=== PATIENT | male | born 1955 | race Caucasian/White ===

== ENCOUNTER 2023-10-11 14:45 | Emergency (ER) | payer MEDICARE, SELFPAY ==
--- NOTE | ~2023-10-11 | XR_ITS ---
EXAMINATION: XR CHEST CLINICAL INFORMATION: Fever COMPARISON: None available. TECHNIQUE: 2 views of the chest were obtained. FINDINGS: No significant abnormality is noted involving the heart, lungs, mediastinum, bony thorax or soft tissues. XR/XR chest 2V IMPRESSION: Unremarkable examination.
[2023-10-11 14:55] VITALS: BP 140/76; PULSE 108; RESP 16; TEMP 37.4; O2SAT 96; BMI 36.1
--- NOTE | 2023-10-11 14:55 | ED_ITS ---
HPI - General Adult General Chief complaint: General Medical Stated complaint: Fever Time Seen by Provider: 10/11/23 15:41 Source: patient Mode of arrival: ambulatory Limitations: no limitations History of Present Illness HPI narrative: 67-year-old male with a history of hypertension presents to the ER with complaints of fever with max temp of 101.4 degrees with chills and body aches since yesterday. Patient took home COVID test and it was negative. Patient tells me that 2 weeks ago he had 1 week of flu-like symptoms which consisted of fever with max temp of 102 degrees, body aches and chills. This resolved with supportive measures. He denies any associated vomiting, diarrhea, chest pain, abdominal pain, shortness of breath, skin rash, neck pain/neck stiffness, headache, urinary symptoms, upper respiratory symptoms. He denies any recent travel or sick contact. He does walk daily but denies any history of tick bites. No animals in the home. Related Data Allergies Allergy/AdvReac Type Severity Reaction Status Date / Time No Known Allergies Allergy Verified 10/11/23 14:53 Review of Systems 2 Review of Systems: Yes all other systems are reviewed and are negative Constitutional: Constitutional: Reports no additional constitutional complaints, Reports body ache(s), Reports chills, Reports fever(s), Denies headache(s) and Denies weakness Eyes: Eyes: Reports no additional eye complaints and Denies change in vision ENT: Reports system reviewed and no additional complaints, except as documented, Denies dizziness, Denies headache(s), Denies nasal congestion, Denies nasal discharge and Denies neck pain Cardiovascular: Cardiovascular: Reports no additional cardiovascular complaints, Denies chest pain, Denies leg edema and Denies dyspnea Respiratory: Respiratory: Reports no additional respiratory complaints, Denies cough and Denies dyspnea Gastrointestinal: Gastrointestinal: Reports no additional gastrointestinal complaints, Denies abdominal pain, Denies diarrhea, Denies nausea and Denies vomiting Genitourinary: Genitourinary: Denies urinary incontinence Musculoskeletal: Musculoskeletal: Reports no additional musculoskeletal complaints, Denies back pain, Denies arthralgias, Denies joint swelling, Denies neck pain, Denies numbness and Denies tingling Integumentary/Breasts: Skin/Breast: Reports system reviewed and no additional complaints, except as docu and Denies rash Neurologic: Reports system reviewed and no additional complaints, except as documented, Denies Abnormal speech present, Denies dizziness, Denies headache(s), Denies numbness, Denies tingling and Denies weakness [facility] Past Medical History Attestation statement: The following information was validated with the patient. Source: old records reviewed and nursing notes reviewed Social History Social History Advance Directives: No Advance Directives Information Provided: No Physical Exam ED Vital Signs: Vital Signs - 24 hr 10/11/23 14:55 10/11/23 16:56 Temperature 99.3 F 98 F Pulse Rate 108 H 96 Respiratory Rate 16 20 Blood Pressure 140/76 H 126/88 Pulse Oximetry 96 97 Oxygen Delivery Method Room Air Room Air BMI result Body Mass Index 36.1 Const General: cooperative, healthy appearing, comfortable and no acute distress Orientation/consciousness: patient oriented x3 Limitations: no limitations HENMT Head: Yes normal to inspection Ears: hearing grossly normal bilaterally and TM's normal bilaterally General nose exam: Normal external nose present Face and sinus: Yes normal facial exam Mouth: Normal oral and palatal mucosa present Throat: Yes posterior oropharynx normal, Yes tonsils normal and Yes uvula midline Eyes General: appearance normal, both eyes and all related structures Pupils: Equal, round and reactive pupils present Neck Neck: Yes normal visual inspection, Yes full ROM, Yes no lymphadenopathy and Yes no meningeal signs Chest Chest palpation & inspection: normal inspection of the chest Resp Effort & Inspection: normal respiratory effort Auscultation: clear to auscultation bilaterally Cardio Rate: regular rate Rhythm: regular rhythm Peripheral pulses: Peripheral pulses 2+ throughout GI Inspection: Yes normal to inspection Palpation (GI): Soft to palpation and nontender Auscultation: normal bowel sounds Back/Spine/Pelvis Thoracic/Lumbar Spine: thoracic and lumbar spine normal to inspection Skin General skin exam: no rashes or lesions noted Neuro General: patient oriented x3, no meningeal signs, no focal motor deficits and normal sensation to monofilament Cranial nerves: Yes Equal, round and reactive pupils present Cognition (Neuro): normal cognition Speech: No Abnormal speech present Gait exam (Neuro): Normal gait present Motor exam (neuro): 5/5 motor strength present throughout Extrem General: Yes normal to inspection, Yes no pedal edema and Yes no calf tenderness Course Course Course Narrative: RME:?67 yo male here for eval of fever, chills, sweats since last night. TMAX 101.4F. took 2 Advil at 1130 today. Had a fever last week, was seen at PCP office, PCP thought it was the flu however did not test him. he tested negative for covid at home. received flu shot this year. denies loss of appetite or unintended weight loss. viral swabs, CXR ordered Full HPI, ROS and PE to be performed by the primary ED provider. Medical Decision Making Medical Decision Making [facility] Narrative: 67-year-old male with a history of hypertension presents to the ER with complaints of fever with max temp of 101.4 degrees with chills and body aches since yesterday. Patient took home COVID test and it was negative. Patient tells me that 2 weeks ago he had 1 week of flu-like symptoms which consisted of fever with max temp of 102 degrees, body aches and chills. This resolved with supportive measures. He denies any associated vomiting, diarrhea, chest pain, abdominal pain, shortness of breath, skin rash, neck pain/neck stiffness, headache, urinary symptoms, upper respiratory symptoms. He denies any recent travel or sick contact. He does walk daily but denies any history of tick bites. No animals in the home. Exam is benign. Patient is afebrile here. Will obtain labs, UA, CXR, viral testing Differential Diagnosis Differential Diagnoses: The differential diagnosis associated with the presentation includes viral syndrome, influenza, PNA, UTI malignancy tick born illness Low suspician for intraabdominal pathology, menigitis/encephalitis Admission/Observation Consideration of admission/observation: Escalation of care including admission/observation considered patient here with flu-like symptoms. Negative workup in the ER, well- appearing, afebrile, nontoxic. Can go home with strict return precautions Lab Data [facility] Lab Attestation statement: I reviewed the patient's lab results. 10/11/23 16:07 10/11/23 16:07 Labs: Lab Results 10/11/23 10/11/23 10/11/23 Range/Units 15:09 16:07 17:31 WBC 8.8 (4.8-10.8) X10*3/uL RBC 4.79 (4.60-5.80) X10*6/uL Hgb 13.3 L (14.0-18.0) g/dl Hct 39.5 L (42.0-52.0) % MCV 82.5 (80.0-98.0) fL MCH 27.8 (27.0-33.0) pg MCHC 33.7 (31.0-36.0) g/dl RDW 13.5 (11.0-16.0) % Plt Count 162 (160-400) X10*3/uL MPV 10.4 (9.4-12.4) fL Immature Gran % (Auto) 0.2 (0.0-0.4) % Neut % (Auto) 79.8 H (45-73) % Lymph % (Auto) 11.7 L (20-40) % [place] % (Auto) 7.3 (2-11) % Eos % (Auto) 0.5 (0-4) % Baso % (Auto) 0.5 (0-2) % Lymph # (Auto) 1.0 L (1.2-4.9) X10*3/uL [place] # (Auto) 0.6 (0.1-1.2) X10*3/uL Eos # (Auto) 0.0 (0.0-0.4) X10*3/uL Baso # (Auto) 0.0 (0.0-0.2) X10*3/uL Abs Immat Gran (auto) 0.02 (0.00-0.03) X10*3/uL Absolute Neuts (auto) 7.1 (2.0-8.3) x10*3/uL Absolute Nucleated RBC 0.000 (0.0-0.012) X10*3/uL Nucleated RBC % (auto) 0.0 (0.0-0.2) /100WBC PT 13.7 H (11.1-13.3) SEC INR 1.1 (0.9-1.1) Sodium 138 (135-145) mmol/L Potassium 4.1 (3.3-5.1) mmol/L Chloride 106 (96-108) mmol/L Carbon Dioxide 25 (22-29) mmol/L Anion Gap 11 L (12-20) BUN 16 (9-16) mg/dL Creatinine 0.83 (0.5-1.4) mg/dL Estim Creat Clear Calc 104.2 Estimated GFR > 60 Random Glucose 104 (60-115) mg/dL Lactic Acid 0.9 (0.5-2.0) mmol/L Calcium 9.1 (8.4-10.2) mg/dL Magnesium 1.8 (1.6-2.6) mg/dL Total Bilirubin 0.7 (0.0-1.0) mg/dL Direct Bilirubin 0.3 (0.0-0.5) mg/dL AST 16 (5-37) U/L ALT 29 (0-40) U/L Alkaline Phosphatase 53 (39-117) U/L C-Reactive Protein 6.96 H (< or = 0.50) mg/dL Total Protein 7.1 (6.5-8.0) g/dL Albumin 3.7 (3.5-5.0) g/dL Urine Color Dark Yellow Urine Appearance Clear Urine pH 6.0 (5.0-9.0) Ur Specific [place] >= 1.030 H (1.005-1.025) Urine Protein Trace (Neg-Trace) mg/dL Urine Glucose (UA) Negative (Negative) mg/dL Urine Ketones Trace (Negative) mg/dL Urine Blood Trace H (Negative) Urine Nitrite Negative (Negative) Ur Leukocyte Esterase Trace H (Negative) Urine RBC 6-10 H (0-2) /HPF Urine WBC 0-5 (0-5) /HPF Ur Squamous Epith Cells 0-2 (0-2) /HPF Urine Bacteria None Seen (None Seen) Hyaline Casts 0-2 (0-2) /LPF Influenza Type A (PCR) NEGATIVE (Negative) Influenza Type B (PCR) NEGATIVE (Negative) RSV RNA Qual (PCR) NEGATIVE (Negative) SARS-CoV-2 RNA (RT-PCR) NEGATIVE (Negative) Independent Interpretation I performed an independent interpretation of an: Plain X-Ray Interpretation: I independently reviewed the x-ray and agree with rad report Radiology Impression Discussion of test interpretation with radiology: I have reviewed the radiologist's reading. Radiologist Impression: [address] [address] XRay Report Signed Patient: Damien Wise MR#: [id number] : 1955 Acct:[id number] Age/Sex: 67 / M ADM Date: 10/11/23 Loc: HO.ED Attending Dr: Ordering Physician: Linda Vora Date of Service: 10/11/23 Procedure(s): XR chest 2V Accession Number(s): [id number] cc: MIRIAM ANDRE [employer]; Linda Vora~ EXAMINATION: XR CHEST CLINICAL INFORMATION: Fever COMPARISON: None available. TECHNIQUE: 2 views of the chest were obtained. FINDINGS: No significant abnormality is noted involving the heart, lungs, mediastinum, bony thorax or soft tissues. XR/XR chest 2V IMPRESSION: Unremarkable examination. Independent Historian Clinical information obtained from an independent historian. History obtained from or confirmed by: Spouse Tests considered The following testing was considered but not selected: no focal abdominal pain to suggest need for CT A/P imaging No headache, neck pain/stiffness or findings concerning for meningitis/encephalitis warranting LP Prescription Management I considered prescription management with: Antibiotic Discharge Plan Discharge Clinical Impression: Acute viral syndrome Patient Disposition: Home, Self-Care Instructions: Viral Syndrome (ED) Additional Instructions: Your urine shows no signs of infection Your testing for flu, COVID, RSV are negative Your chest x-ray shows no signs of pneumonia Your blood work is reassuring We did send testing for tick-borne illnesses as well as blood cultures. We will call you if these are positive with further instructions Continue to alternate Motrin/Tylenol for any pain or fever Increase fluids at home See your primary care doctor for any continued symptoms. Please return here if anything worsens Referrals: Miriam Andre NP [Primary Care Provider] - 1 week
[2023-10-11 15:57] LABS: Influenza A PCR NEGATIVE (Negative); Influenza B PCR NEGATIVE (Negative); Resp Syncy Virus RNA Qual PCR NEGATIVE (Negative); SARS COV2 PCR INHOUSE NEGATIVE (Negative)
[2023-10-11 16:13] LABS: MANUAL DIFF FLAG NO
[2023-10-11 16:17] LABS: Basophils Percent Auto 0.5 % (0-2); Eosinophils Percent Auto 0.5 % (0-4); Hematocrit 39.5 % (42.0-52.0); Hemoglobin 13.3 g/dl (14.0-18.0); Imm Gran Abs Auto 0.02 X10*3/uL (0.00-0.03); Imm Gran Pct Auto 0.2 % (0.0-0.4); Lymphocytes Percent Auto 11.7 % (20-40); Mean Corpuscular HGB Conc 33.7 g/dl (31.0-36.0); Mean Corpuscular Hemoglobin 27.8 pg (27.0-33.0); Mean Corpuscular Volume 82.5 fL (80.0-98.0); Mean Platelet Volume 10.4 fL (9.4-12.4); Monocytes Absolute Auto 0.6 X10*3/uL (0.1-1.2); Monocytes Percent Auto 7.3 % (2-11); Neutrophils Absolute Auto 7.1 x10*3/uL (2.0-8.3); Neutrophils Percent Auto 79.8 % (45-73); Platelet Count 162 X10*3/uL (160-400); Red Blood Count 4.79 X10*6/uL (4.60-5.80); Red Cell Distribution Width 13.5 % (11.0-16.0); White Blood Count 8.8 X10*3/uL (4.8-10.8)
[2023-10-11 16:21] LABS: INTERNATIONAL NORM RATIO 1.1 (0.9-1.1); Prothrombin Time 13.7 SEC (11.1-13.3)
[2023-10-11 16:42] LABS: Lactic Acid 0.9 mmol/L (0.5-2.0)
[2023-10-11 16:47] LABS: Alanine Aminotransferase 29 U/L (0-40); Albumin Level 3.7 g/dL (3.5-5.0); Alkaline Phosphatase 53 U/L (39-117); Anion Gap 11 (12-20); Aspartate Amino Transferase 16 U/L (5-37); Bilirubin Direct 0.3 mg/dL (0.0-0.5); Bilirubin Total 0.7 mg/dL (0.0-1.0); Blood Urea Nitrogen 16 mg/dL (9-16); C Reactive Protein 6.96 mg/dL (< or = 0.50); Calcium 9.1 mg/dL (8.4-10.2); Carbon Dioxide 25 mmol/L (22-29); Chloride 106 mmol/L (96-108); Creatinine Clr Calc Pharmacy 104.2; Estimated Glomerular Filt Rate > 60; Glucose Random 104 mg/dL (60-115); Magnesium 1.8 mg/dL (1.6-2.6); Potassium 4.1 mmol/L (3.3-5.1); Sodium 138 mmol/L (135-145); Total Protein 7.1 g/dL (6.5-8.0)
[2023-10-11 16:56] VITALS: BP 126/88; PULSE 96; RESP 20; TEMP 36.6; O2SAT 97
[2023-10-11 17:39] LABS: Appearance Urine Clear; Color Urine Dark Yellow; Glucose Urine UA Negative (Negative); Leukocyte Esterase Urine Trace (Negative); Nitrite Urine Negative (Negative); Specific Gravity - Urine >= 1.030 (1.005-1.025); UMIC TRIGGER UACC YES; Urine Blood Trace (Negative); Urine Ketones Trace mg/dL (Negative); Urine Protein Trace mg/dL (Neg-Trace)
[2023-10-11 17:44] LABS: Bacteria Urine None Seen (None Seen); Hyaline Casts Urine 0-2 /LPF (0-2); Squamous Epithelial Cell Urine 0-2 /HPF (0-2); WBC Urine 0-5 /HPF (0-5)
[2023-10-13 06:28] LABS: Lyme Abs Screen <0.90 index
[2023-10-19 11:43] LABS: A. Phagocytophilum Ab IgM <1:20 (<1:20); E. Chaffeensis Ab IgG <1:64 (<1:64); E. Chaffeensis Ab IgM <1:20 (<1:20); Interpretation PAST INFECTION
[2023-10-20 10:54] LABS: Babesia IgG <1:64 titer (<1:64); Babesia IgM <1:20 titer (<1:20)
== END 2023-10-11 18:07 | disposition home or self-care (01) ==
PROVIDERS: Nurse Practitioner Family; Physician Assistant Medical; Emergency Provider Emergency Medicine; PCP Nurse Practitioner Family
DX: B34.9 Viral infection, unspecified (principal); R50.9 Fever, unspecified; Z79.899 Other long term (current) drug therapy; Z20.822 Contact with and (suspected) exposure to COVID-19; Z11.52 Encounter for screening for COVID-19
CPT/HCPCS: 0241U; 36415; 71046; 80048; 80076; 81001; 83605; 83735; 85025; 85610; 86140; 86617; 86618; 86666; 86753; 87040; 87077; 87186; 87205; 99283

== ENCOUNTER 2023-10-16 17:23 | Inpatient (IN) | payer MEDICARE, SELFPAY ==
--- NOTE | ~2023-10-16 | CT_ITS ---
EXAMINATION: CT ABDOMEN AND PELVIS WITHOUT CONTRAST CLINICAL INFORMATION: Enterococcal bacteremia COMPARISON: 10/16/2023 TECHNIQUE: Multidetector volumetric imaging was performed from the superior aspect of the liver through the pubic symphysis. Sagittal and coronal reformatted images were obtained on the technologist's workstation. This CT examination was performed using dose optimization techniques as appropriate, variously including the following: *Automated exposure control *Adjustment of mA and/or kV according to patient size (this includes techniques or standardized protocols for targeted exams where dose is matched to indication/reason for exam; i.e. extremities or head) *Use of iterative reconstruction technique DLP: 623 mGy-cm FINDINGS: LUNG BASES: The visualized lung bases are unremarkable. LIVER, GALLBLADDER, AND BILIARY TREE: Liver is heterogeneous, echogenic and enlarged due to hepatic steatosis. There are no intrahepatic masses or ductal dilatation seen gallbladder is distended without stones. PANCREAS: Unremarkable. SPLEEN: Unremarkable. ADRENAL GLANDS: Right adrenal gland is mildly enlarged KIDNEYS AND URETERS: There is lower pole exophytic 3.7 cm cyst stable since previous study. No evidence of hydroureteronephrosis. There is punctate calcification seen in the lower pole of right kidney stable since prior study.. BLADDER: Unremarkable. GASTROINTESTINAL TRACT: There are changes of colonic diverticulosis without diverticulitis or colitis. No evidence of perforation or inflammatory changes. The appendix is not seen. ABDOMINAL WALL: There is fat-containing bilateral small inguinal hernias. LYMPH NODES: Normal. VASCULAR: Unremarkable. PELVIC VISCERA: Unremarkable. OSSEOUS STRUCTURES: Unremarkable. CT/CT abdomen pelvis wo IV con IMPRESSION: 1. Hepatic steatosis and hepatomegaly. 2. Right renal cyst. Punctate calcification in the lower pole of right kidney 3. Diverticulosis without diverticulitis or colitis. Fleischner guidelines were followed.
--- NOTE | ~2023-10-16 | CT_ITS ---
EXAMINATION: CT ABDOMEN AND PELVIS WITHOUT CONTRAST CLINICAL INFORMATION: Enterococcal bacteremia COMPARISON: None available. TECHNIQUE: Multidetector volumetric imaging was performed from the superior aspect of the liver through the pubic symphysis. Sagittal and coronal reformatted images were obtained on the technologist's workstation. This CT examination was performed using dose optimization techniques as appropriate, variously including the following: *Automated exposure control *Adjustment of mA and/or kV according to patient size (this includes techniques or standardized protocols for targeted exams where dose is matched to indication/reason for exam; i.e. extremities or head) *Use of iterative reconstruction technique DLP: 667 mGy-cm FINDINGS: LUNG BASES: The visualized lung bases are unremarkable. LIVER, GALLBLADDER, AND BILIARY TREE: Slightly enlarged fatty liver.. No focal hepatic lesion or biliary ductal dilatation is present. The gallbladder is unremarkable with no evidence of radiopaque gallstones, gallbladder wall thickening, or obvious pericholecystic inflammatory changes. PANCREAS: Unremarkable. SPLEEN: Unremarkable. ADRENAL GLANDS: Unremarkable. KIDNEYS AND URETERS: The kidneys are normal in size, shape, and attenuation. No hydronephrosis, hydroureter ureter tiny 1 mm stone in the lower pole of the right kidney. 3 cm cyst in the lower pole the left kidney. No imaging follow-up recommended. No perinephric stranding. BLADDER: Unremarkable. GASTROINTESTINAL TRACT: Mild diverticulosis of the colon. No evidence of diverticulitis. The small and large bowel are otherwise unremarkable. The appendix is unremarkable. ABDOMINAL WALL: No significant hernia is appreciated. LYMPH NODES: Normal. VASCULAR: Unremarkable. PELVIC VISCERA: Unremarkable. OSSEOUS STRUCTURES: Degenerative changes of the spine. CT/CT abdomen pelvis wo IV con IMPRESSION: Small nonobstructing right renal stone. Slightly enlarged fatty liver. Mild diverticulosis of the colon. Fleischner guidelines were followed.
--- NOTE | ~2023-10-16 | CT_ITS ---
EXAMINATION: CT ABDOMEN AND PELVIS WITH CONTRAST CLINICAL INFORMATION: Persistent bacteremia. COMPARISON: CT abdomen/pelvis 10/18/2023. TECHNIQUE: Multidetector volumetric images were obtained from the superior aspect of the liver through the pubic symphysis following administration 532 mL of Omnipaque 350 intravenous contrast. Sagittal and coronal reformatted images were obtained on the technologist's workstation. Oral contrast: No This CT examination was performed using dose optimization techniques as appropriate, variously including the following: *Automated exposure control *Adjustment of mA and/or kV according to patient size (this includes techniques or standardized protocols for targeted exams where dose is matched to indication/reason for exam; i.e. extremities or head) *Use of iterative reconstruction technique DLP: 532 mGy-cm FINDINGS: LUNG BASES: The visualized lung bases are unremarkable. LIVER, GALLBLADDER, AND BILIARY TREE: The liver is enlarged measuring 19.7 cm craniocaudally and demonstrates low density consistent with hepatic steatosis. Nonspecific focal peripheral high density observation measuring 1.5 cm in liver segment 5 (3:28). Otherwise, liver is normal in morphology. Normal gallbladder. No biliary ductal dilatation. PANCREAS: Unremarkable. SPLEEN: Very small nonaggressive appearing hypodensity in the periphery of the lateral spleen (3:23), not well seen on prior noncontrast examinations. ADRENAL GLANDS: Stable 1.3 cm right adrenal nodule measuring less than 10 Hounsfield units on the prior noncontrast examination, consistent with an adenoma, for which no imaging follow-up is recommended. KIDNEYS AND URETERS: Bosniak I cortical cyst measuring 3.2 cm along the medial surface of the lower left kidney and a few additional too small to characterize bilateral cortical hypodensities, that statistically are also likely to represent simple cysts for which no imaging follow-up is recommended. Symmetric nephrograms. No nephrolithiasis. No hydronephrosis. No perinephric fat stranding. BLADDER: Minimal urinary bladder wall trabeculation and thickening. No significant perivesical fat stranding. GASTROINTESTINAL TRACT: Trace hiatal hernia. The stomach and the small bowel are nondilated. Appendix not well seen, however there are no regional inflammatory changes to suspect acute appendicitis. Mild colonic diverticulosis without significant pericolonic inflammatory changes to suspect acute diverticulitis. No evidence of bowel obstruction. ABDOMINAL WALL: Small fat-containing right greater than left inguinal hernias. Minimal subcutaneous fat stranding in the anterior abdominal wall (3:60), possibly related with injection sites. LYMPH NODES: No lymphadenopathy. VASCULAR: Normal caliber abdominal aorta. Main portal vein is patent. PELVIC VISCERA: Mild prostatomegaly. OSSEOUS STRUCTURES: Degenerative changes of the spine. No acute or aggressive appearing osseous findings. CT/CT abdomen pelvis w IV con IMPRESSION: 1. Hepatomegaly and hepatic steatosis. 2. Nonspecific 1.5 cm high density observation in liver segment 5, possibly representing a transient perfusional abnormality or hemangioma. Recommend further evaluation with outpatient abdominal MRI versus short-term follow-up CT abdomen to ensure stability/resolution. 3. Mild urinary bladder wall trabeculation and thickening, possibly related with chronic outlet obstruction in the setting of prostatomegaly. Further evaluation with urinalysis could be obtained as clinically warranted if cystitis/urinary tract infection is suspected. 4. Mild colonic diverticulosis but no evidence of acute diverticulitis. 5. Very small nonaggressive appearing hypodensity in the lateral aspect of the spleen, uncertain if it is related with volume averaging/artifact versus a true observation, for which differential considerations include cyst, hemangioma, transient perfusional abnormality or less likely very tiny infarction. Attention on follow-up in future examinations recommended.
--- NOTE | 2023-10-16 17:35 | ED.RECABL ---
HPI - Recheck/Abnormal Lab/Rx General Chief Complaint: Recheck/Abnormal Lab/Rx Stated Complaint: abnormal blood culture- was told to come in Time Seen by Provider: 10/16/23 21:16 History of Present Illness HPI narrative: Patient is 61 cc old with history of bladder cancer status post resection otherwise healthy coming here for 4 weeks of intermittent fever with chills T-max of 102 degrees was seen here on 10/11 workup was with normal lactic acid level had blood culture done which showed Enterococcus faecalis in both bottles patient denied any abdominal pain no open wound no urinary symptoms patient's urine was negative patient had colonoscopy about 5 years ago was negative no family history of colon cancer no weight loss no cough no urinary symptoms no open wound no skin lesion has normal appetite no weight loss no neck pain Related Data Home Medications Medication Instructions Recorded Confirmed acetaminophen 325 mg tablet 650 mg PO Q6H PRN Fever Or Pain 10/16/23 10/16/23 amlodipine 10 mg tablet 10 mg PO DAILY 10/16/23 10/16/23 ibuprofen 200 mg tablet (Advil) 400 mg PO Q6H PRN Fever Or Pain 10/16/23 10/16/23 valsartan 80 mg tablet 80 mg PO DAILY 10/16/23 10/16/23 Allergies Allergy/AdvReac Type Severity Reaction Status Date / Time No Known Allergies Allergy Verified 10/11/23 14:53 Review of Systems Review of Systems: Yes all other systems are reviewed and are negative [facility], [facility] Past Medical History Medical History (Updated 10/17/23 @ 02:39 by Ananth Katz MD) Essential hypertension Bladder cancer Social History Social History Patient Tobacco Use Status: Never used Tobacco Advance Directives: No Advance Directives Information Provided: No Physical Exam Vital Signs: Vital Signs: Last Vital Signs Temp 100.3 F 10/16/23 22:02 Pulse 96 10/16/23 22:02 Resp 20 10/16/23 22:02 BP 161/95 H 10/16/23 22:02 Pulse Ox 95 10/16/23 22:02 O2 Del Method Room Air 10/16/23 22:02 BMI result Body Mass Index 35.6 Appearance: Alert. Oriented X3. No acute distress. Eyes: No pallor or icterus ENT: Pharynx normal. Oral Mucosa moist Neck: Normal inspection. Neck supple. CVS: Normal heart rate and rhythm. Pulses normal. Respiratory: No respiratory distress. Equal air entry bilateral, no wheezing/rales/rhonchi Abdomen: Soft and nontender. Bowel sounds are present, no mass palpable, no CVA tenderness Skin: Skin warm and dry. Normal skin color. Normal skin turgor. Extremities: No lower extremity edema. No calf tenderness Neuro: Oriented X 3. Course Course Course Narrative: RME:?67 yo male w/ hx of HTN here after receiving a call with positive blood cultures. He was seen in our facility 5 days ago for fever and discharged with unremarkable workup. He continues to have intermittent fevers/chills/night sweats, headache, and nausea daily. 2/2 Blood cultures positive for Enterococcus faecalis repeat labs/culture, UA ordered Full HPI, ROS and PE to be performed by the primary ED provider. Medications Administered Generic Name Dose Route Start Last Admin Trade Name Freq PRN Reason Stop Dose Admin Acetaminophen 650 mg 10/16/23 23:54 10/17/23 01:32 Acetaminophen 325 Mg Tablet PO 650 mg Q6H PRN Administration Fever Sodium Chloride 1,000 mls @ 100 mls/hr 10/16/23 23:45 10/17/23 01:27 Ns IVCONT 100 mls/hr .Q10H BALDEMAR Administration Sodium Chloride 3 ml 10/17/23 00:00 10/17/23 01:28 0.9 % Sodium Chloride Flush 3 Ml Syringe IVFLUSH Not Given QSHIFT BALDEMAR Discontinued Medications Generic Name Dose Route Start Last Admin Trade Name Freq PRN Reason Stop Dose Admin Sodium Chloride 1,000 mls @ 999 mls/hr 10/16/23 21:21 10/16/23 23:00 Ns IV 10/16/23 22:21 Infused .Q1H1M ONE Infusion Vancomycin HCl 2,000 mg in 500 mls @ 250 mls/hr 10/16/23 21:21 10/17/23 01:32 Vancomycin/Ns IV 10/16/23 23:20 Infused ONCE ONE Infusion Medical Decision Making Medical Decision Making [facility] Narrative: Patient with enterococcal bacteremia etiology not very clear CT of the abdomen done to rule out any GI pathology which was negative a small nonobstructive stone in the right kidney will admit patient for IV antibiotic and repeat blood cultures patient has normal lactic acid level and WBC count Differential Diagnosis Differential Diagnoses: The differential diagnosis associated with the presentation includes Admission/Observation Consideration of admission/observation: Escalation of care including admission/observation considered Consult Healthcare Provider Management of the patient was discussed with: Hospitalist Lab Data MDM Lab Attestation statement: I reviewed the patient's lab results. 10/16/23 17:59 10/16/23 17:59 Labs: Lab Results 10/16/23 Range/Units 17:59 WBC 7.0 (4.8-10.8) X10*3/uL RBC 4.61 (4.60-5.80) X10*6/uL Hgb 12.6 L (14.0-18.0) g/dl Hct 37.7 L (42.0-52.0) % MCV 81.8 (80.0-98.0) fL MCH 27.3 (27.0-33.0) pg MCHC 33.4 (31.0-36.0) g/dl RDW 13.7 (11.0-16.0) % Plt Count 133 L (160-400) X10*3/uL MPV 9.9 (9.4-12.4) fL Immature Gran % (Auto) 0.3 (0.0-0.4) % Neut % (Auto) 72.4 (45-73) % Lymph % (Auto) 16.5 L (20-40) % [place] % (Auto) 9.0 (2-11) % Eos % (Auto) 1.4 (0-4) % Baso % (Auto) 0.4 (0-2) % Lymph # (Auto) 1.2 (1.2-4.9) X10*3/uL [place] # (Auto) 0.6 (0.1-1.2) X10*3/uL Eos # (Auto) 0.1 (0.0-0.4) X10*3/uL Baso # (Auto) 0.0 (0.0-0.2) X10*3/uL Abs Immat Gran (auto) 0.02 (0.00-0.03) X10*3/uL Absolute Neuts (auto) 5.1 (2.0-8.3) x10*3/uL Absolute Nucleated RBC 0.000 (0.0-0.012) X10*3/uL Nucleated RBC % (auto) 0.0 (0.0-0.2) /100WBC Sodium 138 (135-145) mmol/L Potassium 3.8 (3.3-5.1) mmol/L Chloride 108 (96-108) mmol/L Carbon Dioxide 24 (22-29) mmol/L Anion Gap 10 L (12-20) BUN 16 (9-16) mg/dL Creatinine 0.89 (0.5-1.4) mg/dL Estim Creat Clear Calc 96.4 Estimated GFR > 60 Random Glucose 137 H (60-115) mg/dL Lactic Acid 1.0 (0.5-2.0) mmol/L Calcium 8.9 (8.4-10.2) mg/dL Magnesium 1.9 (1.6-2.6) mg/dL Total Bilirubin 0.7 (0.0-1.0) mg/dL AST 20 (5-37) U/L ALT 44 H (0-40) U/L Alkaline Phosphatase 62 (39-117) U/L Total Protein 7.1 (6.5-8.0) g/dL Albumin 3.6 (3.5-5.0) g/dL Lipase 35 (8-78) U/L Independent Interpretation I performed an independent interpretation of an: CT Scan Radiology Impression Discussion of test interpretation with radiology: I have reviewed the radiologist's reading. Discharge Plan Discharge Clinical Impression: Bacteremia Patient Disposition: Admitted As Inpatient
[2023-10-16 17:39] VITALS: BP 133/72; PULSE 98; RESP 18; TEMP 36.7; O2SAT 95; BMI 35.6
[2023-10-16 18:08] LABS: MANUAL DIFF FLAG NO
[2023-10-16 18:09] LABS: Basophils Percent Auto 0.4 % (0-2); Eosinophils Absolute Auto 0.1 X10*3/uL (0.0-0.4); Eosinophils Percent Auto 1.4 % (0-4); Hematocrit 37.7 % (42.0-52.0); Hemoglobin 12.6 g/dl (14.0-18.0); Imm Gran Abs Auto 0.02 X10*3/uL (0.00-0.03); Imm Gran Pct Auto 0.3 % (0.0-0.4); Lymphocytes Absolute Auto 1.2 X10*3/uL (1.2-4.9); Lymphocytes Percent Auto 16.5 % (20-40); Mean Corpuscular HGB Conc 33.4 g/dl (31.0-36.0); Mean Corpuscular Hemoglobin 27.3 pg (27.0-33.0); Mean Corpuscular Volume 81.8 fL (80.0-98.0); Mean Platelet Volume 9.9 fL (9.4-12.4); Monocytes Absolute Auto 0.6 X10*3/uL (0.1-1.2); Neutrophils Absolute Auto 5.1 x10*3/uL (2.0-8.3); Neutrophils Percent Auto 72.4 % (45-73); Platelet Count 133 X10*3/uL (160-400); Red Blood Count 4.61 X10*6/uL (4.60-5.80); Red Cell Distribution Width 13.7 % (11.0-16.0)
[2023-10-16 18:24] LABS: Alanine Aminotransferase 44 U/L (0-40); Albumin Level 3.6 g/dL (3.5-5.0); Alkaline Phosphatase 62 U/L (39-117); Anion Gap 10 (12-20); Aspartate Amino Transferase 20 U/L (5-37); Bilirubin Total 0.7 mg/dL (0.0-1.0); Blood Urea Nitrogen 16 mg/dL (9-16); Calcium 8.9 mg/dL (8.4-10.2); Carbon Dioxide 24 mmol/L (22-29); Chloride 108 mmol/L (96-108); Creatinine Clr Calc Pharmacy 96.4; Estimated Glomerular Filt Rate > 60; Glucose Random 137 mg/dL (60-115); Lipase 35 U/L (8-78); Magnesium 1.9 mg/dL (1.6-2.6); Potassium 3.8 mmol/L (3.3-5.1); Sodium 138 mmol/L (135-145); Total Protein 7.1 g/dL (6.5-8.0)
[2023-10-16] MEDS: 0.9 % Sodium Chloride 1,000 ML 999 ML IV (21:54)
[2023-10-16] MEDS: vancomycin/NS 2,000 MG/500 ML PLAST..BAG 250 MG IV (21:58)
[2023-10-16 22:02] VITALS: BP 161/95; PULSE 96; RESP 20; TEMP 37.9; O2SAT 95
--- NOTE | 2023-10-16 22:31 | PHA.MEDREC ---
Pharmacy Consult ? Medication Reconciliation Pharmacy has completed the medication reconciliation. Patient reported medicaitons. Lachelle Bynum, JudithD
[2023-10-17] VITALS (7 sets, daily range): BP systolic 117–138; BP diastolic 68–79; PULSE 78–88; RESP 16–20; TEMP 36.3–37; O2SAT 95–97; BMI 35.6
[2023-10-17] MEDS: 0.9 % Sodium Chloride 1,000 ML 100 ML IVCONT ×3 (01:27→23:28)
--- NOTE | 2023-10-17 01:27 | PM.IMHP ---
History of Present Illness Date of Service: 10/16/23 Attending physician on admission: Eloisa Jurado Chief Complaint: Fever and chills Damien Wise is a 67 years old man with past medical history significant for bladder cancer on remission presents to the emergency department complaining of over the last several weeks. He also reports associated headache, myalgias and generalized malaise. He does have nausea in the mornings but denied vomiting, abdominal pain or diarrhea. He did not report any rash, cough, shortness on breath or chest pain. He also denies any acute urinary symptoms. He denied illicit drug use, alcohol abuse or tobacco smoking. About 5 days ago, he was evaluated in the emergency department and underwent blood cultures that are positive for Enterococcus faecalis in both bottles and was advised to come to the hospital for further treatment and evaluation. He has no history of bacteremia. He denies history of colon cancer. His last colonoscopy was about 3-5 years ago and was told it was normal (he was adviced to have another in 10 years). In the ED he was found to have temperature 100.3 degrees. There is no tachycardia. Blood pressure is 161/95. Viral testing is negative for COVID-19, influenza and RSV (October 11). There is no leukocytosis. There are no electrolyte imbalances. Renal function is normal. There is no lactic acidosis and LFTs are normal. CRP is elevated. CXR is negative. Urinalysis showed Abdominal pelvis CT scan showed small nonobstructing right renal stone, slightly enlarged fatty liver and mild diverticulosis. ED tx: Vancomycin 2 g IV, NS 1 L bolus. Review of Systems Review of Systems: All 12 systems were reviewed and normal except as noted in HPI. [facility] Medical History (Updated 10/17/23 @ 01:58 by Eloisa Jurado MD) Essential hypertension Bladder cancer Social History Patient Tobacco Use Status: Never used Tobacco Meds Allergies Allergy/AdvReac Type Severity Reaction Status Date / Time No Known Allergies Allergy Verified 10/11/23 14:53 Active Medications: Current Medications Acetaminophen (Acetaminophen 325 Mg Tablet) 650 mg PO Q6H PRN PRN Reason: Fever Amlodipine Besylate (Amlodipine Besylate 10 Mg Tablet) 10 mg PO DAILY [facility]; Protocol Heparin Sodium (Porcine) (Heparin Sodium,Porcine 5,000 Unit/Ml Vial) 5,000 unit SUBCUT Q8H [facility] Sodium Chloride (Ns) 1,000 mls @ 100 mls/hr IVCONT .Q10H [facility] Pharmacy Consult (Consult Rx Vancomycin Dosing) 1 each MISCELLANE DAILY PRN PRN Reason: Consult order Sodium Chloride (0.9 % Sodium Chloride Flush 3 Ml Syringe) 3 ml IVFLUSH QSHIFT [facility] Valsartan (Valsartan 80 Mg Tablet) 80 mg PO DAILY [facility]; Protocol Home Medications Medication Instructions Recorded Confirmed Last Taken Type acetaminophen 325 mg tablet 650 mg PO Q6H PRN Fever Or Pain 10/16/23 10/16/23 Unknown History amlodipine 10 mg tablet 10 mg PO DAILY 10/16/23 10/16/23 10/16/23 History ibuprofen 200 mg tablet (Advil) 400 mg PO Q6H PRN Fever Or Pain 10/16/23 10/16/23 Unknown History valsartan 80 mg tablet 80 mg PO DAILY 10/16/23 10/16/23 10/16/23 History Physical Exam Vital Signs and Narrative: Vital Signs: Last Vital Signs Temp 100.3 F 10/16/23 22:02 Pulse 96 10/16/23 22:02 Resp 20 10/16/23 22:02 BP 161/95 H 10/16/23 22:02 Pulse Ox 95 10/16/23 22:02 O2 Del Method Room Air 10/16/23 22:02 BMI result Body Mass Index 35.6 Constitutional - Awake and Alert, No apparent distress. Looks fatigued. HEENT - Atraumatic. Normocephalic. Pupils equally round. No scleral icterus. Heart - S1S2, RRR. Lungs - Normal lung expansion, Normal respiratory effort, No respiratory distress, CTA bilaterally Abdomen - NT / ND; +BS; No rebound or guarding Extremities - no calf tenderness bilaterally, no swelling Musculoskeletal - Normal inspection, normal ROM Skin - Warm/Dry. No rashes. Neurological - Alert & oriented x3. No focal weakness grossly noted. Normal speech. Normal behavior. Psychological - Appropriate affect Results Labs 10/16/23 17:59 10/16/23 17:59 Labs: Laboratory Results - last 24 hr 10/16/23 17:59 MCV 81.8 MCH 27.3 MCHC 33.4 RDW 13.7 Plt Count 133 L MPV 9.9 Immature Gran % (Auto) 0.3 Neut % (Auto) 72.4 Lymph % (Auto) 16.5 L [place] % (Auto) 9.0 Eos % (Auto) 1.4 Baso % (Auto) 0.4 Lymph # (Auto) 1.2 [place] # (Auto) 0.6 Eos # (Auto) 0.1 Baso # (Auto) 0.0 Abs Immat Gran (auto) 0.02 Absolute Neuts (auto) 5.1 Absolute Nucleated RBC 0.000 Nucleated RBC % (auto) 0.0 Anion Gap 10 L Estim Creat Clear Calc 96.4 Estimated GFR > 60 Random Glucose 137 H Lactic Acid 1.0 Calcium 8.9 Magnesium 1.9 Total Bilirubin 0.7 AST 20 ALT 44 H Alkaline Phosphatase 62 Total Protein 7.1 Albumin 3.6 Lipase 35 Imaging Radiologist's Impressions: Impressions Abdomen/Pelvis CT 10/16/23 21:49 IMPRESSION: Small nonobstructing right renal stone. Slightly enlarged fatty liver. Mild diverticulosis of the colon. Fleischner guidelines were followed. Assessment and Plan (1) Essential hypertension: Status: Acute (2) Bacteremia: Status: Acute (3) Enterococcus faecalis infection: Status: Acute Plan Damien Wise is a 67 years old man with past medical history significant for bladder cancer admitted with: Bacteremia secondary to Enterococcus faecalis (susceptible to ampicillin and vancomycin), unclear source of infection. Admit to hospitalist service. Start treatment with ampicillin 1 g every 4 hours. Check urinalysis. Blood cultures were repeated -will follow results. Check TTE to assess for endocarditis -despite there are no obvious signs or symptoms of endocarditis this should be done as the patient has been having fever for several weeks. ID consult. Hypertension. Continue valsartan and amlodipine. DVT prophylaxis: Heparin subcut Code status: Full Patient will need hospitalization for at least 2 midnights for bacteremia secondary to Enterococcus faecalis treatment with IV antibiotic therapy and close monitoring of vital signs. Quality Stroke Does the patient have a stroke diagnosis?: No VTE Prior VTE?: No VTE Risk Level:: Medical - moderate - high VTE Device Contraindication: Treatment Not Indicated VTE Drug Contraindication: N/A - Med Ordered
[2023-10-17] MEDS: Acetaminophen 325 MG TABLET 650 MG PO ×3 (01:32→21:15)
[2023-10-17 01:56] LABS: Appearance Urine Clear; Color Urine Yellow; Glucose Urine UA Negative (Negative); Leukocyte Esterase Urine Negative (Negative); Nitrite Urine Negative (Negative); PH 6.5 (5.0-9.0); UMIC TRIGGER UACC YES; Urine Blood Small (1+) (Negative); Urine Ketones Negative (Negative); Urine Protein Negative (Neg-Trace)
[2023-10-17 01:58] LABS: Bacteria Urine None Seen (None Seen); Hyaline Casts Urine 0-2 /LPF (0-2); Squamous Epithelial Cell Urine 0-2 /HPF (0-2); WBC Urine 0-5 /HPF (0-5)
[2023-10-17 06:07] LABS: MANUAL DIFF FLAG NO
[2023-10-17 06:12] LABS: Basophils Percent Auto 0.4 % (0-2); Eosinophils Absolute Auto 0.1 X10*3/uL (0.0-0.4); Eosinophils Percent Auto 0.7 % (0-4); Hematocrit 35.1 % (42.0-52.0); Hemoglobin 11.6 g/dl (14.0-18.0); Imm Gran Abs Auto 0.03 X10*3/uL (0.00-0.03); Imm Gran Pct Auto 0.4 % (0.0-0.4); Lymphocytes Absolute Auto 1.3 X10*3/uL (1.2-4.9); Lymphocytes Percent Auto 18.8 % (20-40); Mean Corpuscular Hemoglobin 27.2 pg (27.0-33.0); Mean Corpuscular Volume 82.4 fL (80.0-98.0); Mean Platelet Volume 10.4 fL (9.4-12.4); Monocytes Absolute Auto 0.8 X10*3/uL (0.1-1.2); Monocytes Percent Auto 11.9 % (2-11); Neutrophils Absolute Auto 4.6 x10*3/uL (2.0-8.3); Neutrophils Percent Auto 67.8 % (45-73); Platelet Count 128 X10*3/uL (160-400); Red Blood Count 4.26 X10*6/uL (4.60-5.80); Red Cell Distribution Width 13.8 % (11.0-16.0); White Blood Count 6.7 X10*3/uL (4.8-10.8)
[2023-10-17 06:26] LABS: Anion Gap 11 (12-20); Blood Urea Nitrogen 12 mg/dL (9-16); Calcium 8.4 mg/dL (8.4-10.2); Carbon Dioxide 24 mmol/L (22-29); Chloride 109 mmol/L (96-108); Creatinine Clr Calc Pharmacy 104.6; Estimated Glomerular Filt Rate > 60; Glucose Random 103 mg/dL (60-115); Potassium 3.8 mmol/L (3.3-5.1); Sodium 140 mmol/L (135-145)
--- NOTE | 2023-10-17 07:00 | CA_ITS ---
Transthoracic Echocardiogram Amended Patient (Last, First, Middle): Damien Wise A Gender: Male Date of : 1955 Age: 67 Procedure Date: 10/17/2023 Procedure Type: Transthoracic Echocardiogram Location: ER Height: 172.72 cm Weight: 106.14 kg BSA: 2.18 m2 Heart Rate: 80 bpm BP: 132 / 72 mmHg Clinical Medical Transcriptionist: MANA Referring MD: Eloisa Jurado MD Construction Teacher: Renny Arnold MD Symptoms: Bacteremia with Enterococcus faecalis Study Quality: Adequate ECG Rhythm: Sinus Conclusions: - 1. No obvious large vegetations seen although can not be entirely ruled out 2. Normal LV systolic function with LVEF of 60-65% 3. No obvious abnormality of cardiac valvular Dopplers 4. Normal RV systolic pressure 5. No gross pericardial effusion Findings Left Ventricle Normal left ventricular size, thickness, and systolic function. The visually estimated ejection fraction is between 60-65%. Spectral Doppler is indicative of a normal filling pattern. Peak GLS is -19%, within normal limits. Right Ventricle Normal right ventricular cavity size and systolic function. Atria The left atrium is likely dilated. There is no evidence of interatrial shunt. The right atrium is normal in size. Aortic Valve The aortic valve was not well visualized. There is mild calcification of the aortic valve. There is no aortic valve stenosis. There is no aortic valve regurgitation. Mitral Valve There is mild anterior and posterior mitral leaflet thickening. There is no mitral valve regurgitation. There is no mitral valve stenosis. There is no mass noted on the mitral valve. Pulmonic Valve The pulmonic valve was not well visualized. Tricuspid Valve The tricuspid valve was not well visualized. There is no tricuspid valve regurgitation. The right ventricular systolic pressure is normal. Normal right atrial pressure. There is no evidence of pulmonary hypertension. Great Vessels The pulmonary artery was not well visualized. There is no dilatation of the ascending aorta measuring 3.30 cm. Venous The inferior vena cava is normal in size and collapses greater than 50% with inspiration. Pericardium/Pleural There is no evidence of pericardial effusion. Prior Study Comparison No prior study available for comparison. Recommendations, Care & Conclusions Consider a BRIANDA if clinically appropriate. Measurements 2D Linear Measurements IVSd: 1.06 0.6-0.9/0.6-1.0 cm LVIDd: 4.36 3.9-5.3/4.2-5.9 cm LVIDd Index: 2.00 2.4-3.2/2.2-3.1 cm/m2 LVIDs: 2.73 2.0-3.6 cm LVPWd: 0.94 0.7-1.1 cm LA Diam: 4.00 2.7-3.8/3.0-4.0 cm LAIDs Index: 1.83 1.5-2.3 cm/m2 LV Mass: 181.10 67-162/88-224 g LV Mass Index: 83.07 43-95/49-115 g/m2 LVOT Diam: 2.20 3.0+(-)1.3 cm 2D Volumes LA Vol: 20.90 2D Systolic Function EF 4C: 56.40 >55% EF 2C: 67.30 >55% EF BiP: 62.60 >55% Mitral Valve MV Pk E: 1.06 MV PK A: 0.85 MV Decel Time: 224.00 E/A: 1.30 E'Lateral: 9.46 E'Medial: 11.30 E/E' Med: 9.40 E/E' Lat: 11.20 PHT: 66.00 MVA PHT: 3.33 Decel [place]: 4.70 Aortic Valve AoV Pk Aidan: 1.36 AoV Mn Aidan: 0.91 AoV VTI: 0.22 AoV Pk Grad: 7.00 Aov Mn Grad: 4.00 RANDALL Cont.VTI: 4.04 LVOT LVOT Pk Aidan: 1.33 LVOT Mn Aidan: 0.85 LVOT VTI: 0.24 LVOT Pk Grad: 7.00 LVOT Mn Grad: 3.00 LVOT Diam: 2.20 LVOT Area: 3.80 Diastolic Function MV Pk E: 1.06 MV Pk A: 0.85 E/A: 1.30 E'Medial: 11.30 E/E' Med: 9.40 E' Laterial: 9.46 E/E' Lat: 11.20 Right Ventricle TAPSE (mm): 23.90 TVS' Aidan: 14.00 Tricuspid Valve TR Pk Aidan: 2.14 TR Pk Grad: 18.00 RA Press: 3.00 RVSP: 21.00 Great Vessels Aorta Sinus of Valsalva: 3.50 2.0-3.5 cm Ao Asc: 3.30 2.1-3.4 cm Pulmonary Valve PV Pk Aidan: 1.13 Peak PV Grad: 5.00 Updated in Other Vendor System with Status of Final Renny Arnold MD electronically signed on 10/18/2023 10:50:46 AM with status of Final
[2023-10-17] MEDS: 0.9 % Sodium Chloride Flush 3 ML SYRINGE IVFLUSH (08:00)
[2023-10-17] MEDS: amLODIPine Besylate 10 MG TABLET PO (08:01)
[2023-10-17] MEDS: Heparin Sodium,Porcine 5,000 UNIT/ML VIAL 5000 UNIT SUBCUT ×2 (08:01→16:59)
[2023-10-17] MEDS: Valsartan 80 MG TABLET PO (08:01)
[2023-10-17] MEDS: Ampicillin Sodium 2 GM in 0.9 % Sodium Chloride 100 ML IV ×4 (08:01→21:15)
--- NOTE | 2023-10-17 08:14 | PC.NURSE ---
patient awake and alert. skin pwd, resp even and non labored, speaking in full, clear sentences. VSS, NSR via tele, IV fluids and IV abt infusing as ordered. reports lower abd cramping /. patient up and ambulatory independently to the bathroom, patient reports having a bowel movement, cramping persists after. pt requesting tylenol. awaiting admission
--- NOTE | 2023-10-17 12:09 | PC.NURSE ---
pt ambulated independently to the bathroom, medicated per MAR, denies any pain/nausea at this time, resting comfortably, pending bed assignment. no new orders at this time.
[2023-10-17] MEDS: cefTRIAXone sodium 2 GM in 0.9 % Sodium Chloride 50 ML IV (14:53)
--- NOTE | 2023-10-17 14:55 | W.PM.IDCN ---
History of Present Illness Data of Consult Service Date: 10/17/23 Requesting physician: Ron Martini Primary Care Provider: Ayden Sheffield MD HPI Reason for consult: bacteremia,enterococcus faecalis He presents ER with fever to 101.4 and chills and myalgias,felt like flu. He was called to come back in due to blood cultures enterococcus faecalis 2 10/11 and 2 10/16. He has no procedures or dental work. He had colonoscopy within last five years he thinks He has had no diverticulitis or urinary problems. He sees Dr [facility] bladder cancer 12 years ago and no further problems. He has no abdominal pain or hemauria or dysuria. 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 Meds Allergies Allergy/AdvReac Type Severity Reaction Status Date / Time No Known Allergies Allergy Verified 10/11/23 14:53 Active Medications: Current Medications Acetaminophen (Acetaminophen 325 Mg Tablet) 650 mg PO Q6H PRN PRN Reason: Fever Last Admin: 10/17/23 08:45 Dose: 650 mg Amlodipine Besylate (Amlodipine Besylate 10 Mg Tablet) 10 mg PO DAILY [facility]; Protocol Last Admin: 10/17/23 08:01 Dose: 10 mg Heparin Sodium (Porcine) (Heparin Sodium,Porcine 5,000 Unit/Ml Vial) 5,000 unit SUBCUT Q8H [facility] Last Admin: 10/17/23 08:01 Dose: 5,000 unit Ampicillin Sodium 2 gm/ Sodium (Chloride) 100 mls @ 200 mls/hr IV Q4H [facility] Last Infusion: 10/17/23 13:31 Dose: Infused Sodium Chloride (Ns) 1,000 mls @ 100 mls/hr IVCONT .Q10H [facility] Last Admin: 10/17/23 12:06 Dose: 100 mls/hr Ceftriaxone Sodium 2 gm/ (Sodium Chloride) 50 mls @ 100 mls/hr IV Q24H [facility] Last Admin: 10/17/23 14:53 Dose: 100 mls/hr Sodium Chloride (0.9 % Sodium Chloride Flush 3 Ml Syringe) 3 ml IVFLUSH QSHIFT [facility] Last Admin: 10/17/23 08:00 Dose: 3 ml Valsartan (Valsartan 80 Mg Tablet) 80 mg PO DAILY [facility]; Protocol Last Admin: 10/17/23 08:01 Dose: 80 mg Home Medications Medication Instructions Recorded Confirmed Last Taken Type acetaminophen 325 mg tablet 650 mg PO Q6H PRN Fever Or Pain 10/16/23 10/16/23 Unknown History amlodipine 10 mg tablet 10 mg PO DAILY 10/16/23 10/16/23 10/16/23 History ibuprofen 200 mg tablet (Advil) 400 mg PO Q6H PRN Fever Or Pain 10/16/23 10/16/23 Unknown History valsartan 80 mg tablet 80 mg PO DAILY 10/16/23 10/16/23 10/16/23 History Physical Exam Vital Signs: Vital Signs: Last Vital Signs Temp 98.3 F 10/17/23 14:53 Pulse 78 10/17/23 14:53 Resp 16 10/17/23 14:53 BP 132/72 10/17/23 14:53 Pulse Ox 95 10/17/23 14:53 O2 Del Method Room Air 10/17/23 14:53 BMI result Body Mass Index 35.6 Cardio: Other: 26 BRISA Results Labs 10/17/23 05:30 10/17/23 05:30 Labs: Short CBC 10/16/23 10/17/23 Range/Units 17:59 05:30 WBC 7.0 6.7 (4.8-10.8) X10*3/uL Hgb 12.6 L 11.6 L (14.0-18.0) g/dl Hct 37.7 L 35.1 L (42.0-52.0) % Plt Count 133 L 128 L (160-400) X10*3/uL BMP 10/16/23 10/17/23 17:59 05:30 Sodium 138 140 Potassium 3.8 3.8 Chloride 108 109 H Carbon Dioxide 24 24 BUN 16 12 Creatinine 0.89 0.82 Calcium 8.9 8.4 Liver Function 10/16/23 Range/Units 17:59 Total Bilirubin 0.7 (0.0-1.0) mg/dL AST 20 (5-37) U/L ALT 44 H (0-40) U/L Alkaline Phosphatase 62 (39-117) U/L Albumin 3.6 (3.5-5.0) g/dL Urine 10/17/23 Range/Units 01:48 Urine Color Yellow Urine Appearance Clear Urine pH 6.5 (5.0-9.0) Ur Specific [place] 1.020 (1.005-1.025) Urine Protein Negative (Neg-Trace) mg/dL Urine Glucose (UA) Negative (Negative) mg/dL Microbiology Microbiology Results: Microbiology 10/16/23 17:59 Blood - Venous Blood Culture - Preliminary Prelim: GPC Gram Stain only 10/16/23 17:59 Blood - Venous Blood Culture - Preliminary Prelim: GPC Gram Stain only Assessment and Plan (1) Enterococcus faecalis infection: Status: Acute There is concern over endocarditis with presumed new murmur. There is no evidence genitourinary or GI concerns. There is concern over bladder or bowel source ?occult diverticulitis or UTI There are no grafts or lines in place. There is no Lyme disease relation to bacteremia. Would continue Ampicillin 2 g IV every 4 hours. Ceftriaxone 2 g every 12 hours add synergy possible endocarditis rather than Gentamicin which can affect kidneys deleterioiusly. Echo evaluate endocarditis galen (being done). Check CT abdomen and pelvis consider redo with contrast evaluate possible source. D/W Dr Martini (2) Bacteremia: Status: Acute
--- NOTE | 2023-10-17 15:59 | PM.EVENT ---
Event Note Date of Service: 10/18/23 Event Note: Patient seen and examined by hospitalist seen earlier this morning. Came with Enterococcus bacteremia, urine culture pending He has no procedures or dental work. He had colonoscopy within last five years he thinks He has had no diverticulitis or urinary problems. sees Dr Riley Urology bladder cancer 12 years ago and no further problems. This patient is seen and examined again: No new symptoms: Denies any new complaint of chest pain or shortness of breath or abdominal pain or fever or chills or nausea or vomiting or any urinary complaints. Denies any cough or any weakness or numbness. Physical exam: unchannged from h&P except possible 2/6 BRISA. assessment and plan coordinated in H&p note, Agree with the plan in addition: Enterococcus bacteremia and clear etiology Echo added Monitor on tele Currently patient is asymptomatic ID recommended: Continue ampicillin, added ceftriaxone. Above is discussed with the patient in detail length he understand and in agreement with the above plan. Time Spent With Patient Time: Total time managing care of this patient today ____ minutes.
--- NOTE | 2023-10-17 16:21 | MHC.CM.PN ---
Addendum entered by Lori Mccloud 10/18/23 09:49: CM ATTEMPTED TO SEE PT AGAIN, HE IS OFF UNIT GETTING A CT SCAN CM TO REVISIT Original Note: CM ATTEMPTED TO MEET WITH PT WHO IS OFF UNIT CM TO RETURN
[2023-10-18] MEDS: Ampicillin Sodium 2 GM in 0.9 % Sodium Chloride 100 ML IV ×6 (01:44→22:47)
[2023-10-18] MEDS: Heparin Sodium,Porcine 5,000 UNIT/ML VIAL 5000 UNIT SUBCUT ×3 (01:44→17:16)
[2023-10-18 03:22] VITALS: BP 148/75; PULSE 89; RESP 20; TEMP 36.4; O2SAT 98
[2023-10-18 08:00] VITALS: BP 138/80; PULSE 81; RESP 20; TEMP 36.6; O2SAT 96
[2023-10-18] MEDS: amLODIPine Besylate 10 MG TABLET PO (08:50)
[2023-10-18] MEDS: 0.9 % Sodium Chloride Flush 3 ML SYRINGE IVFLUSH ×2 (08:52→14:29)
[2023-10-18] MEDS: 0.9 % Sodium Chloride 1,000 ML 100 ML IVCONT (08:52)
[2023-10-18] MEDS: Docusate Sodium 100 MG CAPSULE PO (10:16)
[2023-10-18 11:43] VITALS: BP 126/70; PULSE 85; RESP 19; TEMP 36.4; O2SAT 96
--- NOTE | 2023-10-18 13:13 | HO.PM.IMPN ---
Subjective Subjective Date of Service: 10/19/23 Interval History: Enterococcus bacteremia Review of Systems denies any c/o, only has constipation Physical Exam Vital Signs: Vital Signs: Last Vital Signs Temp 97.6 F 10/18/23 11:43 Pulse 85 10/18/23 11:43 Resp 19 10/18/23 11:43 BP 126/70 10/18/23 11:43 Pulse Ox 96 10/18/23 11:43 O2 Del Method Room Air 10/18/23 11:43 BMI result Body Mass Index 35.6 Appearance: Alert.? Oriented X3.? cvs: rrr, [id number]. res: clear to auscultation ,no rhonchii or wheezing abd: no rebound or guarding ,nt, bs present. ext pulses present , no cyanosis . neuro: axo3 , nonfocal. Objective Data Active Medications Acetaminophen (Acetaminophen 325 Mg Tablet) 650 mg PO Q6H PRN PRN Reason: Fever Last Admin: 10/17/23 21:15 Dose: 650 mg Documented By: ROCIO Amlodipine Besylate (Amlodipine Besylate 10 Mg Tablet) 10 mg PO DAILY [facility]; Protocol Last Admin: 10/18/23 08:50 Dose: 10 mg Documented By: JASON Docusate Sodium (Docusate Sodium 100 Mg Capsule) 100 mg PO BID PRN PRN Reason: Constipation Last Admin: 10/18/23 10:16 Dose: 100 mg Documented By: JASON Heparin Sodium (Porcine) (Heparin Sodium,Porcine 5,000 Unit/Ml Vial) 5,000 unit SUBCUT Q8H [facility] Last Admin: 10/18/23 08:50 Dose: 5,000 unit Documented By: JASON Sodium Chloride (Ns) 1,000 mls @ 100 mls/hr IVCONT .Q10H [facility] Last Admin: 10/18/23 08:52 Dose: 100 mls/hr Documented By: JASON Ceftriaxone Sodium 2 gm/ (Sodium Chloride) 50 mls @ 100 mls/hr IV Q24H [facility] Last Infusion: 10/17/23 15:57 Dose: Infused Documented By: SYLVESTERL Ampicillin Sodium 2 gm/ Sodium (Chloride) 100 mls @ 200 mls/hr IV Q4H [facility] Last Infusion: 10/18/23 10:17 Dose: Infused Documented By: JASON Polyethylene Glycol (Polyethylene Glycol 3350 17 Gm Powd.Pack) 17 gm PO DAILY [facility] Last Admin: 10/18/23 09:37 Dose: Not Given Documented By: JASON Non-Admin Reason: had a BM on own Sodium Chloride (0.9 % Sodium Chloride Flush 3 Ml Syringe) 3 ml IVFLUSH QSHIFT [facility] Last Admin: 10/18/23 08:52 Dose: 3 ml Documented By: JASON Labs 10/17/23 05:30 10/17/23 05:30 Microbiology Microbiology Results: Microbiology 10/17/23 01:48 Urine Culture - Final Urine clean catch No growth. 10/16/23 17:59 Blood Culture - Preliminary Blood - Venous Enterococcus/Streptococcus sp 10/16/23 17:59 Blood Culture - Preliminary Blood - Venous Enterococcus/Streptococcus sp Assessment and Plan (1) Enterococcus faecalis infection: Status: Acute (2) Bacteremia: Status: Acute Plan 67 years old man with past medical history significant for bladder cancer admitted with: Bacteremia secondary to Enterococcus faecalis (susceptible to ampicillin and vancomycin), unclear source of infection. blood culture x2 Enterococcus faecalis and another blood cultures x2:Enterococcus/Streptococcus sp. another blood culture ordered. TTE:No obvious large vegetations seen although can not be entirely ruled out . Normal LV systolic function with LVEF of 60-65% No obvious abnormality of cardiac valvular Dopplers. Normal RV systolic pressure. No gross pericardial effusion ct abd wo contrast-Small nonobstructing right renal stone. Slightly enlarged fatty liver.Mild diverticulosis of the colon. ct abd with iv contrast added . plan: ua microhematuria , no pyuria/bacteruria ,urine cultures negative ,no urinary c/o. continue ampicillin 1 g every 4 hours/ceftriaxone 2 gm iv (10/17) ID recomended: continue iv antibiotics ,TTE echo as above , repeat ct abd with iv contrast and also repeat blood cultures.cardiology evalfor BRIANDA. Hypertension. blood pressure flactautaing [id number] amlodipine,hold valsartan. DVT prophylaxis: Heparin subcut. Code status: Full. ongoing hospilisation need for bacteremia secondary to Enterococcus faecalis -continue IV antibiotic therapy and close monitoring for clearence of bacteremia and clinically . Quality Stroke Does the patient have a stroke diagnosis?: No VTE Prior VTE?: No VTE Risk Level:: Medical - moderate - high VTE Device Contraindication: Treatment Not Indicated VTE Drug Contraindication: N/A - Med Ordered
[2023-10-18] MEDS: cefTRIAXone sodium 2 GM in 0.9 % Sodium Chloride 50 ML IV (14:28)
[2023-10-18 15:27] VITALS: BP 128/67; PULSE 93; RESP 20; TEMP 36.2; O2SAT 96
--- NOTE | 2023-10-18 16:31 | MHC.CM.PN ---
IMM 10/18/23, PT ADMITTED W/BACTEREMIA, CM MET W/PT AND RICKI AT BEDSIDE, PT REPORTS HE LIVES W/, STILL WORKS, IS FULLY INDEP W/ALL CARE, DENIES USE OF DME/HOME SERVICES, PER HOSPITALIST PT WILL NEED AT LEAST 2WKS IV ABX ON DC, REFERRAL PLACED TO [facility] DOES NOT TAKE HNE. PCP ON FILE VERIFIED AND HCP IS [facility] NUMBER ON FILE, PT REPORTS HE HAS A COPY AT HOME AND DECLINES TO COMPLETE A NEW ONE RICKI IS AN [employer] AND SHE CAN DO ANOTHER ONE IF NEEDED.
[2023-10-18] MEDS: 0.9 % Sodium Chloride 1,000 ML 80 ML IVCONT (17:19)
[2023-10-18 19:24] VITALS: BP 140/72; PULSE 91; RESP 20; TEMP 37.2; O2SAT 96
[2023-10-18 22:59] VITALS: BP 133/78; PULSE 80; RESP 20; TEMP 36.7; O2SAT 96
--- NOTE | 2023-10-19 | ECG_ITS ---
Test Reason : infection in blood Blood Pressure : / mmHG Vent. Rate : 084 BPM Atrial Rate : 084 BPM P-R Int : 162 ms QRS Dur : 086 ms QT Int : 382 ms P-R-T Axes : 064 050 041 degrees QTc Int : 451 ms Normal sinus rhythm Normal ECG No previous ECGs available Referred By: Ron Martini Electronically Signed By:TIFFANIE LOZANO
[2023-10-19] MEDS: Heparin Sodium,Porcine 5,000 UNIT/ML VIAL 5000 UNIT SUBCUT ×4 (01:04→23:54)
[2023-10-19] MEDS: Ampicillin Sodium 2 GM in 0.9 % Sodium Chloride 100 ML IV ×6 (01:05→21:21)
[2023-10-19 03:24] VITALS: BP 138/75; PULSE 83; RESP 20; TEMP 36.4; O2SAT 94
[2023-10-19] MEDS: 0.9 % Sodium Chloride 1,000 ML 80 ML IVCONT ×2 (06:12→23:54)
[2023-10-19 07:29] VITALS: BP 123/70; PULSE 75; RESP 16; TEMP 36.1; O2SAT 98
[2023-10-19] MEDS: amLODIPine Besylate 10 MG TABLET PO (07:49)
--- NOTE | 2023-10-19 09:55 | PM.CNCAR ---
History of Present Illness History of Present Illness Date of Service: 10/19/23 Chief complaint: Bacteremia Narrative: This is a cardiology consultation regarding getting a transesophageal echocardiogram. Patient is positive for Enterococcus in the blood cultures and hence we are consulted. Patient himself is generally healthy and does not have any major comorbidities according to him. He does not have any major cardiac issues either. History of bladder cancer several years ago but under good control and surveillance as generally been okay per patient. Current admissions for fever type symptoms and blood cultures positive for Enterococcus faecalis. Hence we are consulted for doing a BRIANDA. He states that he is feeling better since admission. Review of Systems Review of Systems: Yes all other systems are reviewed and are negative Constitutional: Constitutional: Reports as per HPI and Reports no additional constitutional complaints Eyes: Eyes: Reports as per HPI and Denies no additional eye complaints ENT: Denies system reviewed and no additional complaints, except as documented and Reports as per HPI Cardiovascular: Cardiovascular: Reports as per HPI, Reports no additional cardiovascular complaints, Denies acrocyanosis, Denies cool extremities, Denies chest pain, Denies leg edema, Denies lightheadedness, Denies palpitations and Denies dyspnea Respiratory: Respiratory: Reports as per HPI, Denies no additional respiratory complaints and Denies dyspnea Gastrointestinal: Gastrointestinal: Reports as per HPI and Denies no additional gastrointestinal complaints Genitourinary: Genitourinary: Reports no additional male genitourinary complaints and Reports as per HPI Musculoskeletal: Musculoskeletal: Reports no additional musculoskeletal complaints and Reports as per HPI Integumentary/Breasts: Skin/Breast: Reports system reviewed and no additional complaints, except as docu Neurologic: Reports system reviewed and no additional complaints, except as documented and Reports as per HPI Psychiatric: Psychiatric: Reports no additional psychiatric complaints and Reports as per HPI Endocrine: Endocrine: Reports no additional endocrine complaints, Reports as per HPI and Denies palpitations Hematologic/Lymphatic: Hematologic/Lymphatic: Reports no additional hematologic/lymphatic complaints and Reports as per HPI Allergic/Immunologic: Allergic/Immunologic: Reports no additional allergic/immunologic complaints and Reports as per HPI PMF Past Medical History Medical History Essential hypertension Bladder cancer Family History Pertinent family history: There is history of cancer but otherwise nothing clearly pertinent to the current admission. 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 Meds Allergies Allergy/AdvReac Type Severity Reaction Status Date / Time No Known Allergies Allergy Verified 10/11/23 14:53 Active Medications: Current Medications Acetaminophen (Acetaminophen 325 Mg Tablet) 650 mg PO Q6H PRN PRN Reason: Fever Last Admin: 10/17/23 21:15 Dose: 650 mg Amlodipine Besylate (Amlodipine Besylate 10 Mg Tablet) 10 mg PO DAILY [facility]; Protocol Last Admin: 10/19/23 07:49 Dose: 10 mg Docusate Sodium (Docusate Sodium 100 Mg Capsule) 100 mg PO BID PRN PRN Reason: Constipation Last Admin: 10/18/23 10:16 Dose: 100 mg Heparin Sodium (Porcine) (Heparin Sodium,Porcine 5,000 Unit/Ml Vial) 5,000 unit SUBCUT Q8H [facility] Last Admin: 10/19/23 07:49 Dose: 5,000 unit Ceftriaxone Sodium 2 gm/ (Sodium Chloride) 50 mls @ 100 mls/hr IV Q24H [facility] Last Infusion: 10/18/23 16:01 Dose: Infused Ampicillin Sodium 2 gm/ Sodium (Chloride) 100 mls @ 200 mls/hr IV Q4H [facility] Last Admin: 10/19/23 09:28 Dose: 200 mls/hr Sodium Chloride (Ns) 1,000 mls @ 80 mls/hr IVCONT .[id number] [facility] Last Infusion: 10/19/23 09:01 Dose: 0 mls/hr Polyethylene Glycol (Polyethylene Glycol 3350 17 Gm Powd.Pack) 17 gm PO DAILY [facility] Last Admin: 10/19/23 07:49 Dose: Not Given Sodium Chloride (0.9 % Sodium Chloride Flush 3 Ml Syringe) 3 ml IVFLUSH QSHIFT [facility] Last Admin: 10/19/23 07:50 Dose: Not Given Home Medications Medication Instructions Recorded Confirmed Last Taken Type acetaminophen 325 mg tablet 650 mg PO Q6H PRN Fever Or Pain 10/16/23 10/16/23 Unknown History amlodipine 10 mg tablet 10 mg PO DAILY 10/16/23 10/16/2324 History ibuprofen 200 mg tablet (Advil) 400 mg PO Q6H PRN Fever Or Pain 10/16/23 10/16/23 Unknown History valsartan 80 mg tablet 80 mg PO DAILY 10/16/23 10/16/23 10/16/23 History Physical Exam Vital Signs: Vital Signs: Last Vital Signs Temp 97 F 10/19/23 07:29 Pulse 75 10/19/23 07:29 Resp 16 10/19/23 07:29 BP 123/70 10/19/23 07:29 Pulse Ox 98 10/19/23 07:29 O2 Del Method Room Air 10/19/23 07:29 BMI result Body Mass Index 35.6 Const: General: comfortable and no acute distress Orientation/consciousness: patient oriented x3 HEENT: Other: Unremarkable Head: Yes normal to inspection Neck: Neck: Yes normal visual inspection Chest: Chest palpation & inspection: normal inspection of the chest Resp: Auscultation: clear to auscultation bilaterally Cardio: Palpation: normal PMI Heart sounds: S1 normal heart sound present, S2 normal heart sound present, no gallops, Murmur heart sound present systolic III/ and at the apex and no rubs GI: Palpation (GI): Soft to palpation Back/Spine/Pelvis: Other: unremarkable Skin: General skin exam: no rashes or lesions noted Neuro: General: patient oriented x3 Extrem: General: Yes normal to inspection Psych: Mental Status: mental status grossly normal Objective Labs and Meds 10/17/23 05:30 10/17/23 05:30 ECG Interpretation: Requested Dr. Martini. To get EKG. Imaging Radiologist's impression: Impressions Abdomen/Pelvis CT 10/18/23 09:22 IMPRESSION: 1. Hepatic steatosis and hepatomegaly. 2. Right renal cyst. Punctate calcification in the lower pole of right kidney 3. Diverticulosis without diverticulitis or colitis. Fleischner guidelines were followed. Assessment and Plan (1) Bacteremia: Status: Acute (2) Enterococcus faecalis infection: Status: Acute Plan Blood cultures are positive for Enterococcus faecalis. Most recent culture was drawn yesterday but still pending. On exam, there is a holosystolic murmur at the apex but transthoracic study is not showing anything significant. We discussed about the transesophageal echocardiographic procedure in detail including potential complications and patient understands and agrees with the same. Will try to schedule the same for tomorrow, depending on OR schedule. Discussed with Dr. Martini as well as Dr. Smith. Procedures Date of Service Date of Service: 10/19/23
--- NOTE | 2023-10-19 10:33 | MHC.CM.PN ---
Per ROUNDS discussion, Patient us not yet medically cleared for dc (BRIANDA tomorrow); Home with services is the goal and CM will continue to follow.
[2023-10-19 12:00] VITALS: BP 127/62; PULSE 78; RESP 16; TEMP 36.3; O2SAT 97
--- NOTE | 2023-10-19 13:57 | P.PNIM_ITS ---
Subjective Subjective Date of Service: 10/19/23 Interval History: Enterococcus bacteremia Review of Systems No new complaint. No fever Physical Exam 2 Vital Signs: Vital Signs: Last Vital Signs Temp 97.4 F 10/19/23 12:00 Pulse 78 10/19/23 12:00 Resp 16 10/19/23 12:00 BP 127/62 10/19/23 12:00 Pulse Ox 97 10/19/23 12:00 O2 Del Method Room Air 10/19/23 12:00 BMI result Body Mass Index 35.6 Appearance: Alert.? Oriented X3.? cvs: rrr, [id number]. res: clear to auscultation ,no rhonchii or wheezing abd: no rebound or guarding ,nt, bs present. ext pulses present , no cyanosis . neuro: axo3 , nonfocal. Objective Data Active Medications Acetaminophen (Acetaminophen 325 Mg Tablet) 650 mg PO Q6H PRN PRN Reason: Fever Last Admin: 10/17/23 21:15 Dose: 650 mg Documented By: ROCIO Amlodipine Besylate (Amlodipine Besylate 10 Mg Tablet) 10 mg PO DAILY [facility]; Protocol Last Admin: 10/19/23 07:49 Dose: 10 mg Documented By: ELIZABETH Docusate Sodium (Docusate Sodium 100 Mg Capsule) 100 mg PO BID PRN PRN Reason: Constipation Last Admin: 10/18/23 10:16 Dose: 100 mg Documented By: JASON Heparin Sodium (Porcine) (Heparin Sodium,Porcine 5,000 Unit/Ml Vial) 5,000 unit SUBCUT Q8H [facility] Last Admin: 10/19/23 07:49 Dose: 5,000 unit Documented By: ELIZABETH Ceftriaxone Sodium 2 gm/ (Sodium Chloride) 50 mls @ 100 mls/hr IV Q24H [facility] Last Infusion: 10/18/23 16:01 Dose: Infused Documented By: JASON Ampicillin Sodium 2 gm/ Sodium (Chloride) 100 mls @ 200 mls/hr IV Q4H [facility] Last Infusion: 10/19/23 10:16 Dose: Infused Documented By: ELIZABETH Sodium Chloride (Ns) 1,000 mls @ 80 mls/hr IVCONT .[id number] [facility] Last Admin: 10/19/23 11:50 Dose: Not Given Documented By: ELIZABETH Non-Admin Reason: Physician Held Med Polyethylene Glycol (Polyethylene Glycol 3350 17 Gm Powd.Pack) 17 gm PO DAILY [facility] Last Admin: 10/19/23 07:49 Dose: Not Given Documented By: ELIZABETH Non-Admin Reason: Patient Refused Sodium Chloride (0.9 % Sodium Chloride Flush 3 Ml Syringe) 3 ml IVFLUSH QSHIFT [facility] Last Admin: 10/19/23 07:50 Dose: Not Given Documented By: ELIZABETH Non-Admin Reason: IV Running Labs 10/17/23 05:30 10/17/23 05:30 Microbiology Microbiology Results: Microbiology 10/18/23 09:51 Blood Culture - Preliminary Blood - Venous No growth after 24 hours. 10/18/23 09:51 Blood Culture - Preliminary Blood - Venous No growth after 24 hours. 10/17/23 01:48 Urine Culture - Final Urine clean catch No growth. Assessment and Plan (1) Enterococcus faecalis infection: Status: Acute (2) Bacteremia: Status: Acute (3) Essential hypertension: Status: Acute Plan 67 years old man with past medical history significant for bladder cancer admitted with: Bacteremia secondary to Enterococcus faecalis (susceptible to ampicillin and vancomycin), unclear source of infection. blood culture x2 Enterococcus faecalis and another blood cultures x2:Enterococcus/Streptococcus sp. another blood culture ordered. TTE:No obvious large vegetations seen although can not be entirely ruled out . Normal LV systolic function with LVEF of 60-65% No obvious abnormality of cardiac valvular Dopplers. Normal RV systolic pressure. No gross pericardial effusion ct abd wo contrast-Small nonobstructing right renal stone. Slightly enlarged fatty liver.Mild diverticulosis of the colon. ct abd with iv contrast added . plan: ua microhematuria , no pyuria/bacteruria ,urine cultures negative ,no urinary c/o. continue ampicillin 1 g every 4 hours/ceftriaxone 2 gm iv (10/17) ID recomended: continue iv antibiotics ,TTE echo as above , repeat ct abd with iv contrast and also repeat blood cultures.cardiology eval for BRIANDA. npo past midnight Hypertension. blood pressure flactautaing 120's-continue amlodipine,hold valsartan( consider adding back if needed). DVT prophylaxis: Heparin subcut. Code status: Full. ongoing hospilisation need for bacteremia secondary to Enterococcus faecalis - continue IV antibiotic therapy and close monitoring for clearence of bacteremia and clinically , as well as further cardiac workup and and expert recommendations. Above management discussed with the patient in detail length he understand and in agreement with the plan. Quality Stroke Does the patient have a stroke diagnosis?: No VTE Prior VTE?: No VTE Risk Level:: Medical - moderate - high VTE Device Contraindication: Treatment Not Indicated VTE Drug Contraindication: N/A - Med Ordered
[2023-10-19 15:47] VITALS: BP 142/70; PULSE 82; RESP 16; TEMP 36.6; O2SAT 96
[2023-10-19] MEDS: cefTRIAXone sodium 2 GM in 0.9 % Sodium Chloride 50 ML IV (17:15)
[2023-10-19] MEDS: 0.9 % Sodium Chloride Flush 3 ML SYRINGE IVFLUSH ×2 (17:16→21:21)
[2023-10-19 19:17] VITALS: BP 167/80; PULSE 94; RESP 20; TEMP 36.2; O2SAT 97
[2023-10-19 23:46] VITALS: BP 152/87; PULSE 80; RESP 20; TEMP 36.1; O2SAT 95
[2023-10-20] VITALS (12 sets, daily range): BP systolic 123–157; BP diastolic 60–84; PULSE 73–96; RESP 16–20; TEMP 36.1–36.6; O2SAT 92–99
[2023-10-20] MEDS: Ampicillin Sodium 2 GM in 0.9 % Sodium Chloride 100 ML IV ×5 (02:03→21:28)
--- NOTE | 2023-10-20 07:00 | CA_ITS ---
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 Long linear vegetation, measuring about 1.8cm, attached to atrial aspect of posterior mitral leaflet. Probably P1 segment. There is thickening in the subvalvular area adjacent to this site, of uncertain significance, possible abscess. Moderate highly eccentric regurgitation. Underestimation possible. Overall, consistent with mitral valve endocarditis. ??? Aortic valve has nonspecific thickening and possible Lambl's excrescences. Cannot exclude early stages of infection. Findings Left Ventricle Normal left ventricular cavity size. The left ventricular systolic function is normal. The visually estimated ejection fraction is between 60-65%. There is no evidence of regional wall motion abnormalities. Right Ventricle Normal right ventricular cavity size and systolic function. Atria There is no evidence of a thrombus in the left atrial appendage. Aortic Valve There is a normal trileaflet aortic valve. There is no aortic valve stenosis. Mild thickening of the leaflets. Thin strands attached to the leaflets on the aortic side. Possible Lambl's excrescences. Can also be early stages of infection. Mitral Valve Long linear vegetation, measuring about 1.8cm, attached to atrial aspect of posterior leaflet. Probably P1 segment. There is thickening in the subvalvular area adjacent to this site, of uncertain significance, possible abscess. Moderate highly eccentric regurgitation. Underestimation possible. Pulmonic Valve The pulmonic valve is likely normal. There is trace pulmonic valve regurgitation. Tricuspid Valve Normal tricuspid valve structure. There is trace tricuspid valve regurgitation. Great Vessels The asc aorta is normal in size. Pericardium/Pleural There is no evidence of pericardial effusion. Prior Study Comparison Changes noted compared to prior study dated: 10/17/2023. Updated by Alcon Oquendo on 09:10 AM with Status of Final Alcon Oquendo MD electronically signed on 10/20/2023 9:10:18 AM with status of Final
[2023-10-20 07:14] LABS: Hematocrit 37.6 % (42.0-52.0); Hemoglobin 12.7 g/dl (14.0-18.0); Mean Corpuscular HGB Conc 33.8 g/dl (31.0-36.0); Mean Corpuscular Hemoglobin 27.5 pg (27.0-33.0); Mean Corpuscular Volume 81.4 fL (80.0-98.0); Mean Platelet Volume 10.1 fL (9.4-12.4); Platelet Count 148 X10*3/uL (160-400); Red Blood Count 4.62 X10*6/uL (4.60-5.80); Red Cell Distribution Width 13.6 % (11.0-16.0); White Blood Count 6.5 X10*3/uL (4.8-10.8)
[2023-10-20 07:33] LABS: Anion Gap 10 (12-20); Blood Urea Nitrogen 11 mg/dL (9-16); Calcium 9.3 mg/dL (8.4-10.2); Carbon Dioxide 28 mmol/L (22-29); Chloride 107 mmol/L (96-108); Creatinine Clr Calc Pharmacy 107.2; Estimated Glomerular Filt Rate > 60; Glucose Random 94 mg/dL (60-115); Potassium 3.8 mmol/L (3.3-5.1); Sodium 141 mmol/L (135-145)
[2023-10-20] MEDS: amLODIPine Besylate 10 MG TABLET PO (07:58)
[2023-10-20] MEDS: Heparin Sodium,Porcine 5,000 UNIT/ML VIAL 5000 UNIT SUBCUT ×2 (07:58→15:19)
[2023-10-20] MEDS: 0.9 % Sodium Chloride Flush 3 ML SYRINGE IVFLUSH ×2 (07:59→14:30)
--- NOTE | 2023-10-20 10:00 | MHC.SHP ---
Pre-Procedural Eval Section A - 24 Hr Update-Section A only Date of Service: 10/20/23 Section B - Complete if H&P > 30 days Chief Complaint: Bacteremia Allergies: Allergies Allergy/AdvReac Type Severity Reaction Status Date / Time No Known Allergies Allergy Verified 10/11/23 14:53 Plan I have reviewed the history and physical and performed a pertinent physical examination on my patient. No changes have occurred unless specified. Time Spent With Patient Time: Total time managing care of this patient today ____ minutes.
[2023-10-20] MEDS: Lactated Ringers 1,000 ML 50 ML IVCONT (10:05)
--- NOTE | 2023-10-20 10:07 | HO.ANESPROP2 ---
[facility] Active Problems Active Problems: All Active Problems (Updated 10/20/23 @ 09:48 by Treva Sood RN) Enterococcus faecalis infection (Acute) Bacteremia (Acute) Essential hypertension (Acute) Past Medical History Medical History Hx of skin malignancy Essential hypertension Bladder cancer Family History Family history of problems with anesthesia: No Surgical History Surgical History Hx of nasal polypectomy Hx of colonoscopy History of bladder surgery History of Problems with Anesthesia: No Social History Social History Household Members: Spouse Housing: House Do you presently have visiting nurse or other home services: No Patient Tobacco Use Status: Never used Tobacco service: No 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,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 Meds Allergies Allergy/AdvReac Type Severity Reaction Status Date / Time No Known Allergies Allergy Verified 10/11/23 14:53 Active Medications: Current Medications Acetaminophen (Acetaminophen 325 Mg Tablet) 650 mg PO Q6H PRN PRN Reason: Fever Last Admin: 10/17/23 21:15 Dose: 650 mg Amlodipine Besylate (Amlodipine Besylate 10 Mg Tablet) 10 mg PO DAILY [facility]; Protocol Last Admin: 10/20/23 07:58 Dose: 10 mg Docusate Sodium (Docusate Sodium 100 Mg Capsule) 100 mg PO BID PRN PRN Reason: Constipation Last Admin: 10/18/23 10:16 Dose: 100 mg Heparin Sodium (Porcine) (Heparin Sodium,Porcine 5,000 Unit/Ml Vial) 5,000 unit SUBCUT Q8H [facility] Last Admin: 10/20/23 07:58 Dose: 5,000 unit Ceftriaxone Sodium 2 gm/ (Sodium Chloride) 50 mls @ 100 mls/hr IV Q24H [facility] Last Infusion: 10/19/23 18:00 Dose: Infused Ampicillin Sodium 2 gm/ Sodium (Chloride) 100 mls @ 200 mls/hr IV Q4H [facility] Last Infusion: 10/20/23 07:52 Dose: Infused Sodium Chloride (Ns) 1,000 mls @ 80 mls/hr IVCONT .[id number] [facility] Last Admin: 10/19/23 23:54 Dose: 80 mls/hr Lactated Ringer's (Lr) 1,000 mls @ 50 mls/hr IVCONT .Q20H [facility] Last Admin: 10/20/23 10:05 Dose: 50 mls/hr Polyethylene Glycol (Polyethylene Glycol 3350 17 Gm Powd.Pack) 17 gm PO DAILY [facility] Last Admin: 10/20/23 06:55 Dose: Not Given Sodium Chloride (0.9 % Sodium Chloride Flush 3 Ml Syringe) 3 ml IVFLUSH QSHIFT [facility] Last Admin: 10/20/23 07:59 Dose: 3 ml Home Medications Medication Instructions Recorded Confirmed Last Taken Type acetaminophen 325 mg tablet 650 mg PO Q6H PRN Fever Or Pain 10/16/23 10/16/23 Unknown History amlodipine 10 mg tablet 10 mg PO DAILY 10/16/23 10/16/23 10/16/23 History ibuprofen 200 mg tablet (Advil) 400 mg PO Q6H PRN Fever Or Pain 10/16/23 10/16/23 Unknown History valsartan 80 mg tablet 80 mg PO DAILY 10/16/23 10/16/23 10/16/23 History Exam Height,Weight and Vital Signs: Height 5 ft 8 in Weight 106.14 kg Last Vital Signs Temp 97.3 F 10/20/23 09:49 Pulse 79 10/20/23 09:49 Resp 16 10/20/23 09:49 BP 134/78 10/20/23 09:49 Pulse Ox 95 10/20/23 09:49 O2 Del Method Room Air 10/20/23 09:49 Pertinent Lab Results Pertinent Lab Results: Laboratory Tests 10/16/23 10/17/23 10/17/23 17:59 01:48 05:30 WBC 7.0 6.7 RBC 4.61 4.26 L Hgb 12.6 L 11.6 L Hct 37.7 L 35.1 L MCV 81.8 82.4 MCH 27.3 27.2 MCHC 33.4 33.0 RDW 13.7 13.8 Plt Count 133 L 128 L MPV 9.9 10.4 Immature Gran % (Auto) 0.3 0.4 Neut % (Auto) 72.4 67.8 Lymph % (Auto) 16.5 L 18.8 L [place] % (Auto) 9.0 11.9 H Eos % (Auto) 1.4 0.7 Baso % (Auto) 0.4 0.4 Lymph # (Auto) 1.2 1.3 [place] # (Auto) 0.6 0.8 Eos # (Auto) 0.1 0.1 Baso # (Auto) 0.0 0.0 Abs Immat Gran (auto) 0.02 0.03 Absolute Neuts (auto) 5.1 4.6 Absolute Nucleated RBC 0.000 0.000 Nucleated RBC % (auto) 0.0 0.0 Sodium 138 140 Potassium 3.8 3.8 Chloride 108 109 H Carbon Dioxide 24 24 Anion Gap 10 L 11 L BUN 16 12 Creatinine 0.89 0.82 Estim Creat Clear Calc 96.4 104.6 Estimated GFR > 60 > 60 Random Glucose 137 H 103 Lactic Acid 1.0 Calcium 8.9 8.4 Magnesium 1.9 Total Bilirubin 0.7 AST 20 ALT 44 H Alkaline Phosphatase 62 Total Protein 7.1 Albumin 3.6 Lipase 35 Urine Color Yellow Urine Appearance Clear Urine pH 6.5 Ur Specific [place] 1.020 Urine Protein Negative Urine Glucose (UA) Negative Urine Ketones Negative Urine Blood Small (1+) H Urine Nitrite Negative Ur Leukocyte Esterase Negative Urine RBC 6-10 H Urine WBC 0-5 Ur Squamous Epith Cells 0-2 Urine Bacteria None Seen Hyaline Casts 0-2 10/20/23 06:29 WBC 6.5 RBC 4.62 Hgb 12.7 L Hct 37.6 L MCV 81.4 MCH 27.5 MCHC 33.8 RDW 13.6 Plt Count 148 L MPV 10.1 Immature Gran % (Auto) Neut % (Auto) Lymph % (Auto) [place] % (Auto) Eos % (Auto) Baso % (Auto) Lymph # (Auto) [place] # (Auto) Eos # (Auto) Baso # (Auto) Abs Immat Gran (auto) Absolute Neuts (auto) Absolute Nucleated RBC 0.000 Nucleated RBC % (auto) 0.0 Sodium 141 Potassium 3.8 Chloride 107 Carbon Dioxide 28 Anion Gap 10 L BUN 11 Creatinine 0.80 Estim Creat Clear Calc 107.2 Estimated GFR > 60 Random Glucose 94 Lactic Acid Calcium 9.3 D Magnesium Total Bilirubin AST ALT Alkaline Phosphatase Total Protein Albumin Lipase Urine Color Urine Appearance Urine pH Ur Specific [place] Urine Protein Urine Glucose (UA) Urine Ketones Urine Blood Urine Nitrite Ur Leukocyte Esterase Urine RBC Urine WBC Ur Squamous Epith Cells Urine Bacteria Hyaline Casts Airway Mallampati Class: IV TM Dist: >3cm Neck ROM: Full Heart: RRR Lungs: CTA Assessment and Plan Assessment Anesthesia Assessment: Anesthesia Plan Discussed Final Anesthetic Review Family History of Problems with Anesthesia: No History of Problems with Anesthesia: No NPO: Yes ASA Class: II Final Preanesthetic Review: Meds/Allgs Chart Reviewed, Consent Obtained/Reviewed and Anes Risks/Benef Reviewed Patient Risk: Intermediate Procedure Risk: Low Anesthetic Plan Anesthetic Plan: GA Disposition: Standard PACU
--- NOTE | 2023-10-20 12:18 | PM.PNCARD ---
Subjective Subjective Date of Service: 10/20/23 Interval history: Seen and examined patient. No new complaints from cardiac. Review of Systems Review of Systems No new complaint. No fever Yes all other systems are reviewed and are negative Constitutional: Reports as per HPI and Reports no additional constitutional complaints Eyes: Reports as per HPI and Denies no additional eye complaints Denies system reviewed and no additional complaints, except as documented and Reports as per HPI Cardiovascular: Reports as per HPI, Reports no additional cardiovascular complaints, Denies acrocyanosis, Denies cool extremities, Denies chest pain, Denies leg edema, Denies lightheadedness, Denies palpitations and Denies dyspnea Respiratory: Reports as per HPI, Denies no additional respiratory complaints and Denies dyspnea Gastrointestinal: Reports as per HPI and Denies no additional gastrointestinal complaints Genitourinary: Reports no additional male genitourinary complaints and Reports as per HPI Musculoskeletal: Reports no additional musculoskeletal complaints and Reports as per HPI Skin/Breast: Reports system reviewed and no additional complaints, except as docu Reports system reviewed and no additional complaints, except as documented and Reports as per HPI Psychiatric: Reports no additional psychiatric complaints and Reports as per HPI Endocrine: Reports no additional endocrine complaints, Reports as per HPI and Denies palpitations Hematologic/Lymphatic: Reports no additional hematologic/lymphatic complaints and Reports as per HPI Allergic/Immunologic: Reports no additional allergic/immunologic complaints and Reports as per HPI Physical Exam Vital Signs: Last Vital Signs Temp 97.1 F 10/20/23 12:00 Pulse 76 10/20/23 12:00 Resp 18 10/20/23 12:00 BP 123/70 10/20/23 12:00 Pulse Ox 92 10/20/23 12:00 O2 Del Method Room Air 10/20/23 12:00 O2 Flow Rate 2 10/20/23 11:50 BMI result Body Mass Index 35.6 Const General: comfortable and no acute distress Orientation/consciousness: patient oriented x3 HEENT Other: Unremarkable Head: Yes normal to inspection Neck Neck: Yes normal visual inspection Chest Chest palpation & inspection: normal inspection of the chest Resp Auscultation: clear to auscultation bilaterally Cardio Palpation: normal PMI Heart sounds: S1 normal heart sound present, S2 normal heart sound present, no gallops, Murmur heart sound present systolic III/ and at the apex and no rubs GI Palpation (GI): Soft to palpation Back/Spine/Pelvis Other: unremarkable Skin General skin exam: no rashes or lesions noted Neuro General: patient oriented x3 Extrem General: Yes normal to inspection Psych Mental Status: mental status grossly normal Objective Labs and Meds 10/20/23 06:29 10/20/23 06:29 Lab results: Laboratory Results - last 24 hr 10/20/23 06:29 WBC 6.5 RBC 4.62 Hgb 12.7 L Hct 37.6 L MCV 81.4 MCH 27.5 MCHC 33.8 RDW 13.6 Plt Count 148 L MPV 10.1 Absolute Nucleated RBC 0.000 Nucleated RBC % (auto) 0.0 Sodium 141 Potassium 3.8 Chloride 107 Carbon Dioxide 28 Anion Gap 10 L BUN 11 Creatinine 0.80 Estim Creat Clear Calc 107.2 Estimated GFR > 60 Random Glucose 94 Calcium 9.3 D Progress Note: A&P Assessment and plan (1) Bacteremia: Status: Acute (2) Enterococcus faecalis infection: Status: Acute (3) Endocarditis of mitral valve: Status: Acute Plan Transesophageal echocardiogram performed today. There is clear evidence of mitral valve vegetation/at least moderate mitral regurgitation. Can not exclude perforation/abscess. With regard to aortic valve, some nonspecific thickening and again could be early stages of infection. He needs evaluation for cardiac surgery-mitral valve replacement. Continue antibiotics in the interim. Discussed with Dr. Willoughby by tiger text who will see him in evaluation. Accepted by hospitalist service. Time Spent With Patient Time: Total time managing care of this patient today ____ minutes. Progress Note: Quality Stroke Does the patient have a stroke diagnosis?: No Procedures Date of Service Date of Service: 10/20/23
--- NOTE | 2023-10-20 12:43 | P.DS_ITS ---
DS: Providers Provider Date of Service: 10/20/23 Date of admission: 10/16/23 23:54 Date of discharge: 10/20/23 Primary care physician: Ayden Sheffield MD Consults: 10/17/23 01:54 Consult to Infectious Diseases Routine Consulting Provider: [facility] Infectious Disease Reason for consultation: Enterococcus faecalis bacteremia Has provider been notified: No 10/18/23 16:53 Consult to Cardiology Routine Consulting Provider: [facility] Cardiovascular Services Reason for consultation: persistent enterococcal bacteremia -unclear etiology ,need BRIANDA Has provider been notified: No DS: Diagnosis Discharge Diagnosis (1) Bacteremia: Status: Acute (2) Enterococcus faecalis infection: Status: Acute (3) Endocarditis of mitral valve: Status: Acute DS: Summary Hospital Course Hospital Course: From the history and physical by the admitting hospitalist, Eloisa Martinez MD, 10/17/23: Damien Wise is a 67 years old man with past medical history significant for bladder cancer on remission presents to the emergency department complaining of over the last several weeks. He also reports associated headache, myalgias and generalized malaise. He does have nausea in the mornings but denied vomiting, abdominal pain or diarrhea. He did not report any rash, cough, shortness on breath or chest pain. He also denies any acute urinary symptoms. He denied illicit drug use, alcohol abuse or tobacco smoking. About 5 days ago, he was evaluated in the emergency department and underwent blood cultures that are positive for Enterococcus faecalis in both bottles and was advised to come to the hospital for further treatment and evaluation. He has no history of bacteremia. He denies history of colon cancer. His last colonoscopy was about 3-5 years ago and was told it was normal (he was adviced to have another in 10 years). In the ED he was found to have temperature 100.3 degrees. There is no t achycardia. Blood pressure is 161/95. Viral testing is negative for COVID-19, influenza and RSV (October 11). There is no leukocytosis. There are no electrolyte imbalances. Renal function is normal. There is no lactic acidosis and LFTs are normal. CRP is elevated. CXR is negative. Urinalysis showed Abdominal pelvis CT scan showed small nonobstructing right renal stone, slightly enlarged fatty liver and mild diverticulosis. ED tx: Vancomycin 2 g IV, NS 1 L bolus. [facility] and treated with ampicillin plus synergistic ceftriaxone as per Infectious Disease consultation. Due to persistent Enterococcus faecalis bacteremia [10/16 and 10/18 blood cultures positive; 10/20 blood cultures pending], echocardiographic evaluation was pursued. TTE did not show any obvious large vegetations. BRIANDA done on 10/20, however, showed a long,linear 1.8cm vegetation attached to the atrial sepct of the posterior mitral leaflet, with thickening in the subvalvular area adjacent to this site, possibly representing an abscess. There was moderate highly eccentric mitral regurgitation. The aortic valve showed nonspecific thickening with possible Lambl's excrescences. He was transferred to [facility] for cardiothoracic surgical consultation. Primary source of infection suspected to be the urinary tract; CT of the abdomen and pelvis with contrast on 10/20 showed: 1. Hepatomegaly and hepatic steatosis. 2. Nonspecific 1.5 cm high density observation in liver segment 5, possibly representing a transient perfusional abnormality or hemangioma. Recommend further evaluation with outpatient abdominal MRI versus short-term follow-up CT abdomen to ensure stability/resolution. 3. Mild urinary bladder wall trabeculation and thickening, possibly related with chronic outlet obstruction in the setting of prostatomegaly. Further evaluation with urinalysis could be obtained as clinically warranted if cystitis/urinary tract infection is suspected. 4. Mild colonic diverticulosis but no evidence of acute diverticulitis. 5. Very small nonaggressive appearing hypodensity in the lateral aspect of the spleen, uncertain if it is related with volume averaging/artifact versus a true observation, for which differential considerations include cyst, hemangioma, transient perfusional abnormality or less likely very tiny infarction. Attention on follow-up in future examinations recommended. Time Attestation Discharge coordination time: Greater than 30 minutes Quality: Safe Use of Opioids Does Pt have an Active Cancer Diagnosis on the Problem List?: No Quality: Stroke Does the patient have a stroke diagnosis?: No Physical Exam Vital Signs: Vital Signs: Last Vital Signs Temp 97.1 F 10/20/23 12:00 Pulse 76 10/20/23 12:00 Resp 18 10/20/23 12:00 BP 123/70 10/20/23 12:00 Pulse Ox 92 10/20/23 12:00 O2 Del Method Room Air 10/20/23 12:00 O2 Flow Rate 2 10/20/23 11:50 BMI result Body Mass Index 35.6 Gen: in no acute distress HEENT: sclera anicteric, moist mucus membranes Neck: supple Lungs: clear to auscultation bilaterally Heart: regular rate and rhythm, systolic murmur at apex Abd: soft, non-tender, non-distended Ext: no edema Skin: warm/well-perfused Neuro: alert and oriented x3, no focal findings Psych: appropriate affect DS: Data Data Completed and Pending Completed studies during hospitalization [Text1]: Laboratory Results WBC 6.5 X10*3/uL (4.8-10.8) 10/20/23 06:29 RBC 4.62 X10*6/uL (4.60-5.80) 10/20/23 06:29 Hgb 12.7 g/dl (14.0-18.0) L 10/20/23 06:29 Hct 37.6 % (42.0-52.0) L 10/20/23 06:29 MCV 81.4 fL (80.0-98.0) 10/20/23 06:29 MCH 27.5 pg (27.0-33.0) 10/20/23 06:29 MCHC 33.8 g/dl (31.0-36.0) 10/20/23 06:29 RDW 13.6 % (11.0-16.0) 10/20/23 06:29 Plt Count 148 X10*3/uL (160-400) L 10/20/23 06:29 MPV 10.1 fL (9.4-12.4) 10/20/23 06:29 Immature Gran % (Auto) 0.4 % (0.0-0.4) 10/17/23 05:30 Neut % (Auto) 67.8 % (45-73) 10/17/23 05:30 Lymph % (Auto) 18.8 % (20-40) L 10/17/23 05:30 [place] % (Auto) 11.9 % (2-11) H 10/17/23 05:30 Eos % (Auto) 0.7 % (0-4) 10/17/23 05:30 Baso % (Auto) 0.4 % (0-2) 10/17/23 05:30 Lymph # (Auto) 1.3 X10*3/uL (1.2-4.9) 10/17/23 05:30 [place] # (Auto) 0.8 X10*3/uL (0.1-1.2) 10/17/23 05:30 Eos # (Auto) 0.1 X10*3/uL (0.0-0.4) 10/17/23 05:30 Baso # (Auto) 0.0 X10*3/uL (0.0-0.2) 10/17/23 05:30 Abs Immat Gran (auto) 0.03 X10*3/uL (0.00-0.03) 10/17/23 05:30 Absolute Neuts (auto) 4.6 x10*3/uL (2.0-8.3) 10/17/23 05:30 Absolute Nucleated RBC 0.000 X10*3/uL (0.0-0.012) 10/20/23 06:29 Nucleated RBC % (auto) 0.0 /100WBC (0.0-0.2) 10/20/23 06:29 Sodium 141 mmol/L (135-145) 10/20/23 06:29 Potassium 3.8 mmol/L (3.3-5.1) 10/20/23 06:29 Chloride 107 mmol/L (96-108) 10/20/23 06:29 Carbon Dioxide 28 mmol/L (22-29) 10/20/23 06:29 Anion Gap 10 (12-20) L 10/20/23 06:29 BUN 11 mg/dL (9-16) 10/20/23 06:29 Creatinine 0.80 mg/dL (0.5-1.4) 10/20/23 06:29 Estim Creat Clear Calc 107.2 10/20/23 06:29 Estimated GFR > 60 10/20/23 06:29 Random Glucose 94 mg/dL (60-115) 10/20/23 06:29 Lactic Acid 1.0 mmol/L (0.5-2.0) 10/16/23 17:59 Calcium 9.3 mg/dL (8.4-10.2) D 10/20/23 06:29 Magnesium 1.9 mg/dL (1.6-2.6) 10/16/23 17:59 Total Bilirubin 0.7 mg/dL (0.0-1.0) 10/16/23 17:59 AST 20 U/L (5-37) 10/16/23 17:59 ALT 44 U/L (0-40) H 10/16/23 17:59 Alkaline Phosphatase 62 U/L (39-117) 10/16/23 17:59 Total Protein 7.1 g/dL (6.5-8.0) 10/16/23 17:59 Albumin 3.6 g/dL (3.5-5.0) 10/16/23 17:59 Lipase 35 U/L (8-78) 10/16/23 17:59 Urine Color Yellow 10/17/23 01:48 Urine Appearance Clear 10/17/23 01:48 Urine pH 6.5 (5.0-9.0) 10/17/23 01:48 Ur Specific [place] 1.020 (1.005-1.025) 10/17/23 01:48 Urine Protein Negative mg/dL (Neg-Trace) 10/17/23 01:48 Urine Glucose (UA) Negative mg/dL (Negative) 10/17/23 01:48 Urine Ketones Negative mg/dL (Negative) 10/17/23 01:48 Urine Blood Small (1+) (Negative) H 10/17/23 01:48 Urine Nitrite Negative (Negative) 10/17/23 01:48 Ur Leukocyte Esterase Negative (Negative) 10/17/23 01:48 Urine RBC 6-10 /HPF (0-2) H 10/17/23 01:48 Urine WBC 0-5 /HPF (0-5) 10/17/23 01:48 Ur Squamous Epith Cells 0-2 /HPF (0-2) 10/17/23 01:48 Urine Bacteria None Seen (None Seen) 10/17/23 01:48 Hyaline Casts 0-2 /LPF (0-2) 10/17/23 01:48 Impressions Abdomen/Pelvis CT 10/18/23 09:22 IMPRESSION: 1. Hepatic steatosis and hepatomegaly. 2. Right renal cyst. Punctate calcification in the lower pole of right kidney 3. Diverticulosis without diverticulitis or colitis. Fleischner guidelines were followed. Microbiology 10/18/23 09:51 Blood - Venous Blood Culture - Preliminary No growth after 48 hours. 10/18/23 09:51 Blood - Venous Blood Culture - Preliminary Prelim: GPC Gram Stain only 10/17/23 01:48 Urine clean catch Urine Culture - Final No growth. 10/16/23 17:59 Blood - Venous Blood Culture - Preliminary Enterococcus/Streptococcus sp 10/16/23 17:59 Blood - Venous Blood Culture - Preliminary Enterococcus/Streptococcus sp Blood culture (10/21/23) E faecalis M.I.C. RX --------- --- Ampicillin <=2 S Vancomycin 1 S Discharge Plan Discharge Anticipated Discharge Date/Time: 10/20/23 12:26 Patient Disposition: [facility] Discharge Diagnosis: Persistent Enterococcus faecalis bacteremia Mitral valve endocarditis Referrals: Ayden Sheffield MD [Primary Care Provider] - 1 Week Discharge Medications: New ceftriaxone 2 gram Recon Soln 2 g IV Q24H Qty: 1 0RF acetaminophen 325 mg Tablet 650 mg PO Q6H PRN (Reason: Fever) Qty: 1 0RF heparin (porcine) 5,000 unit/mL Solution 5,000 unit subcut Q8H Qty: 1 0RF docusate sodium 100 mg Capsule 100 mg PO BID PRN (Reason: Constipation) Qty: 1 0RF polyethylene glycol 3350 17 gram Powder In Packet 17 g PO DAILY Qty: 1 0RF ampicillin sodium 2 gram recon soln 2 g IV Q4H Qty: 1 0RF Continued acetaminophen 325 mg Tablet 650 mg PO Q6H PRN (Reason: Fever Or Pain) valsartan 80 mg tablet 80 mg PO DAILY amlodipine 10 mg tablet 10 mg PO DAILY ibuprofen [Advil] 200 mg Tablet 400 mg PO Q6H PRN (Reason: Fever Or Pain) Discharge Orders: Discharge Order (Routine); Ordered 10/20/23 Ordered By: Gopi Moulton Diet: Advance to usual diet Activity on Discharge: As tolerated Stand Alone Forms: Patient Portal Discharge page Care Plan Goals: Cure of infection Health Concerns: Persistent Enterococcus faecalis bacteremia Mitral valve endocarditis Plan of Treatment: Continue ampicillin 2 grams IV every 4 hours PLUS ceftriaxone 2 grams IV daily Transfer to [facility] for Cardiothoracic Surgery consultation Assessment: See Discharge Summary. Discharge Date/Time: 10/20/23 23:58
--- NOTE | 2023-10-20 12:56 | MHC.CM.PN ---
Pt will be medically transferred to [facility] due to BRIANDA being positive for mitral valve endocarditis.
[2023-10-20] MEDS: 0.9 % Sodium Chloride 1,000 ML 80 ML IVCONT (14:30)
[2023-10-20] MEDS: cefTRIAXone sodium 2 GM in 0.9 % Sodium Chloride 50 ML IV (15:19)
--- NOTE | 2023-10-20 15:25 | P.PNID_ITS ---
Subjective Subjective Date of Service: 10/20/23 Critical Care Time (minutes): 15 Comment: he has enteroccal bacteremia persistent he denies any procedures or recent UTIs again Objective Data Labs 10/20/23 06:29 10/20/23 06:29 Labs: Laboratory Results - last 24 hr 10/20/23 06:29 WBC 6.5 RBC 4.62 Hgb 12.7 L Hct 37.6 L MCV 81.4 MCH 27.5 MCHC 33.8 RDW 13.6 Plt Count 148 L MPV 10.1 Absolute Nucleated RBC 0.000 Nucleated RBC % (auto) 0.0 Sodium 141 Potassium 3.8 Chloride 107 Carbon Dioxide 28 Anion Gap 10 L BUN 11 Creatinine 0.80 Estim Creat Clear Calc 107.2 Estimated GFR > 60 Random Glucose 94 Calcium 9.3 D Microbiology Microbiology Results: Microbiology 10/16/23 17:59 Blood - Venous Blood Culture - Final Enterococcus faecalis 10/16/23 17:59 Blood - Venous Blood Culture - Final Enterococcus faecalis 10/18/23 09:51 Blood - Venous Blood Culture - Preliminary No growth after 48 hours. 10/18/23 09:51 Blood - Venous Blood Culture - Preliminary Prelim: GPC Gram Stain only 10/17/23 01:48 Urine clean catch Urine Culture - Final No growth. Physical Exam 2 Vital Signs: Vital Signs: Last Vital Signs Temp 96.9 F 10/20/23 15:19 Pulse 88 10/20/23 15:19 Resp 20 10/20/23 15:19 BP 129/69 10/20/23 15:19 Pulse Ox 96 10/20/23 15:19 O2 Del Method Room Air 10/20/23 15:19 O2 Flow Rate 2 10/20/23 11:50 BMI result Body Mass Index 35.6 Const: General: cooperative HEENT: Head: Yes normal to inspection Face and sinus: Yes normal facial exam Mouth: Normal oral and palatal mucosa present Teeth and gingiva: d entition normal Eyes: General: appearance normal, both eyes and all related structures P upils: Equal, round and reactive pupils present Resp: Effort & Inspection: normal respiratory effort Cardio: Rate: regular rate Rhythm: regular rhythm GI: Palpation (GI): Soft to palpation and nontender : General: Yes no CVA tenderness Back/Spine/Pelvis: Back: no CVA tenderness Skin: General skin exam: no rashes or lesions noted Neuro: General: moves all extremities Cranial nerves: Yes Equal, round and reactive pupils present Extrem: General: Yes normal to inspection Psych: Appearance: grossly normal Assessment and Plan Assessment and plan (1) Endocarditis of mitral valve: Status: Acute (2) Enterococcus faecalis infection: Status: Acute Plan Mitral valve enteroccus endocarditis. Probably six weeks IV Ampicillin and Ceftriaxone. Cardiac Surgery evaluation. Eval Dr Riley probable cystosocpy look for bladder cancer recurrence. Time Spent With Patient Time: Total time managing care of this patient today ____ minutes.
--- NOTE | 2023-10-20 15:26 | HO.POSTANES ---
Post Anesthesia Evaluation Post Anesthesia Evaluation Date of Service: 10/20/23 Vital Signs: Vital Signs Temp Pulse Resp BP Pulse Ox O2 Del Method O2 Flow Rate 10/20/23 15:19 96.9 F 88 20 129/69 96 Room Air 10/20/23 12:00 97.1 F 76 18 123/70 92 Room Air 10/20/23 11:50 76 18 123/75 95 Nasal Cannula 2 10/20/23 11:39 73 17 127/75 99 Nasal Cannula 2 10/20/23 11:34 73 17 138/66 99 Nasal Cannula 2 10/20/23 11:29 73 16 128/60 98 Nasal Cannula 2 10/20/23 11:24 97.0 F 79 16 128/66 97 Room Air 10/20/23 10:11 93 Room Air 10/20/23 09:49 97.3 F 79 16 134/78 95 Room Air 10/20/23 07:41 97.7 F 83 20 148/84 H 96 Room Air Anesthesia: Monitored and General Endotracheal-GETA Mental Status: Awake Pain Control: Satisfactory Nausea/Vomiting: None Hydration: Adequate Anesthesia-Related Issues: No Anes. Related Issues
[2023-10-20] MEDS: Diatrizoate Meglumine, Sodium 30 ML SOLUTION PO (15:47)
[2023-10-20] MEDS: iohexoL 350 MG/ML 100 ML INFUS..BTL IV (15:47)
--- NOTE | 2023-10-20 16:28 | HO.PM.IMPN ---
Subjective Subjective Date of Service: 10/20/23 Interval History: BRIANDA shows mitral valve vegetation and possible aortic valve thickening [place] [facility] [place] fever Review of Systems Review of Systems: Yes all other systems are reviewed and are negative Physical Exam Vital Signs: Vital Signs: Last Vital Signs Temp 96.9 F 10/20/23 15:19 Pulse 88 10/20/23 15:19 Resp 20 10/20/23 15:19 BP 129/69 10/20/23 15:19 Pulse Ox 96 10/20/23 15:19 O2 Del Method Room Air 10/20/23 15:19 O2 Flow Rate 2 10/20/23 11:50 BMI result Body Mass Index 35.6 Gen: in no acute distress HEENT: sclera anicteric, moist mucus membranes Neck: supple Lungs: clear to auscultation bilaterally Heart: regular rate and rhythm, systolic murmur at apex Abd: soft, non-tender, non-distended Ext: no edema Skin: warm/well-perfused Neuro: alert and oriented x3, no focal findings Psych: appropriate affect Objective Data Active Medications Acetaminophen (Acetaminophen 325 Mg Tablet) 650 mg PO Q6H PRN PRN Reason: Fever Last Admin: 10/17/23 21:15 Dose: 650 mg Documented By: ROCIO Amlodipine Besylate (Amlodipine Besylate 10 Mg Tablet) 10 mg PO DAILY [facility]; Protocol Last Admin: 10/20/23 07:58 Dose: 10 mg Documented By: ELIZABETH Docusate Sodium (Docusate Sodium 100 Mg Capsule) 100 mg PO BID PRN PRN Reason: Constipation Last Admin: 10/18/23 10:16 Dose: 100 mg Documented By: JASON Fentanyl (Fentanyl Citrate/Pf 100 Mcg/2 Ml Vial) 25 mcg IVPUSH Q5M PRN; Protocol PRN Reason: Pain, Moderate(Pain Scale 4-6) Heparin Sodium (Porcine) (Heparin Sodium,Porcine 5,000 Unit/Ml Vial) 5,000 unit SUBCUT Q8H [facility] Last Admin: 10/20/23 15:19 Dose: 5,000 unit Documented By: ELIZABETH Ceftriaxone Sodium 2 gm/ (Sodium Chloride) 50 mls @ 100 mls/hr IV Q24H [facility] Last Infusion: 10/20/23 16:06 Dose: 100 mls/hr Documented By: ELIZABETH Ampicillin Sodium 2 gm/ Sodium (Chloride) 100 mls @ 200 mls/hr IV Q4H [facility] Last Infusion: 10/20/23 15:20 Dose: Infused Documented By: ELIZABETH Sodium Chloride (Ns) 1,000 mls @ 80 mls/hr IVCONT .[id number] [facility] Last Infusion: 10/20/23 15:24 Dose: 0 mls/hr Documented By: ELIZABETH Lactated Ringer's (Lr) 1,000 mls @ 50 mls/hr IVCONT .Q20H [facility] Last Admin: 10/20/23 10:05 Dose: 50 mls/hr Documented By: LEXI Ondansetron HCl (Ondansetron Hcl 4 Mg/2 Ml Vial) 4 mg IVPUSH ONCE PRN PRN Reason: Nausea and Vomiting Polyethylene Glycol (Polyethylene Glycol 3350 17 Gm Powd.Pack) 17 gm PO DAILY [facility] Last Admin: 10/20/23 06:55 Dose: Not Given Documented By: ELIZABETH Non-Admin Reason: NPO Sodium Chloride (0.9 % Sodium Chloride Flush 3 Ml Syringe) 3 ml IVFLUSH QSHIFT [facility] Last Admin: 10/20/23 14:30 Dose: 3 ml Documented By: ELIZABETH Labs 10/20/23 06:29 10/20/23 06:29 Labs: Laboratory Results - last 24 hr 10/20/23 06:29 MCV 81.4 MCH 27.5 MCHC 33.8 RDW 13.6 Plt Count 148 L MPV 10.1 Absolute Nucleated RBC 0.000 Nucleated RBC % (auto) 0.0 Anion Gap 10 L Estim Creat Clear Calc 107.2 Estimated GFR > 60 Random Glucose 94 Calcium 9.3 D Microbiology Microbiology Results: Microbiology 10/16/23 17:59 Blood Culture - Final Blood - Venous Enterococcus faecalis 10/16/23 17:59 Blood Culture - Final Blood - Venous Enterococcus faecalis 10/18/23 09:51 Blood Culture - Preliminary Blood - Venous No growth after 48 hours. 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 Enterococcus bacteremia, persistent - ID consulted; on ampicillin with synergisitc ceftriaxone. Initial BCx 10/11; subsequent BCx 10/16 + 10/18 still positive. BRIANDA 10/20 with long,linear 1.8cm vegetation attached to the atrial sepct of the posterior mitral leaflet, with thickening in the subvalvular area adjacent to this site, possibly representing an abscess. There was moderate highly eccentric mitral regurgitation. The aortic valve showed nonspecific thickening with possible Lambl's excrescences. Will be transferred to [facility] for cardiothoracic surgical consultation. Primary source of infection is still unknown; CT of the abdomen and pelvis with contrast on 10/20 ordered. HTN - amlodipine VTE ppx - [facility] dispo - [facility] In my clinical judgment, the patient requires continued inpatient hospitalization for the following reasons: IV ABX, CT surgical consultation Total time managing care of this patient today: 50 minutes. Quality Stroke Does the patient have a stroke diagnosis?: No VTE Prior VTE?: No VTE Risk Level:: Medical - moderate - high VTE Device Contraindication: Treatment Not Indicated VTE Drug Contraindication: N/A - Med Ordered
== END 2023-10-20 23:58 | disposition short-term general hospital (02) | DRG 289 ==
LOC: HO.ED 21:16 → HO.EDOVER 23:59 → HO.IMC 10-17 15:47
PROVIDERS: Internal Medicine; Physician Assistant Medical; Admitting Provider Internal Medicine; Emergency Provider Internal Medicine; PCP Family Medicine; Visit Provider Family Medicine
PROC: B24BZZ4 Ultrasonography of Heart with Aorta, Transesophageal (ICD-10-PCS; CPT 93312; principal; 2023-10-20 10:10)
DX: I33.0 Acute and subacute infective endocarditis (principal); R78.81 Bacteremia; B95.2 Enterococcus as the cause of diseases classified elsewhere; I10 Essential (primary) hypertension; Z85.51 Personal history of malignant neoplasm of bladder; Z79.899 Other long term (current) drug therapy
CPT/HCPCS: 36415; 74176; 74177; 80048; 80053; 81001; 83605; 83690; 83735; 85025; 85027; 87040; 87077; 87086; 87186; 87205; 93005; 93306; 93356; 99285; J0290; J0696; J1644; J2250; J2405; J2704; J3370; J7120; Q9957; Q9967

== ENCOUNTER 2023-10-16 23:54 | Outpatient (BNV) | payer MEDICARE, SELFPAY | END 2023-10-17 07:00 | PROVIDERS: Admitting Provider Internal Medicine; Emergency Provider Internal Medicine; PCP Family Medicine; Visit Provider Internal Medicine Cardiovascular Disease | DX: I35.8 Other nonrheumatic aortic valve disorders (principal) | CPT/HCPCS: 93306 ==

== ENCOUNTER 2023-10-16 23:54 | Outpatient (BNV) | payer MEDICARE, SELFPAY | END 2023-10-19 09:49 | PROVIDERS: Admitting Provider Internal Medicine; Emergency Provider Internal Medicine; PCP Family Medicine; Visit Provider Internal Medicine | DX: D75.9 Disease of blood and blood-forming organs, unspecified (principal) | CPT/HCPCS: 93010 ==

== ENCOUNTER 2023-10-16 23:54 | Outpatient (BNV) | payer MEDICARE, SELFPAY | END 2023-10-20 07:00 | PROVIDERS: Admitting Provider Internal Medicine; Emergency Provider Internal Medicine; PCP Family Medicine; Visit Provider Internal Medicine | DX: I05.9 Rheumatic mitral valve disease, unspecified (principal) | CPT/HCPCS: 93312; 93320; 93325 ==

== ENCOUNTER → 2023-10-16 23:54 | Outpatient (BNV) | payer MEDICARE, SELFPAY | PROVIDERS: Admitting Provider Internal Medicine; Emergency Provider Internal Medicine; PCP Family Medicine; Visit Provider Internal Medicine | DX: A49.8 Other bacterial infections of unspecified site (principal); R78.81 Bacteremia | CPT/HCPCS: 99222; 99232 ==

== ENCOUNTER → 2023-10-16 23:54 | Outpatient (BNV) | payer MEDICARE, SELFPAY | PROVIDERS: Admitting Provider Internal Medicine; Emergency Provider Internal Medicine; PCP Family Medicine; Visit Provider Internal Medicine | DX: R78.81 Bacteremia (principal); A49.8 Other bacterial infections of unspecified site; I05.9 Rheumatic mitral valve disease, unspecified | CPT/HCPCS: 99223; 99233 ==

== ENCOUNTER → 2023-10-16 23:54 | Outpatient (BNV) | payer MEDICARE, SELFPAY | PROVIDERS: Admitting Provider Internal Medicine; Emergency Provider Internal Medicine; PCP Family Medicine; Visit Provider Internal Medicine | DX: I10 Essential (primary) hypertension (principal); R78.81 Bacteremia; B95.2 Enterococcus as the cause of diseases classified elsewhere | CPT/HCPCS: 99223; 99232; 99238; 99499 ==

== ENCOUNTER 2024-03-25 08:30 | Outpatient (RCR) | payer MEDICARE, SELFPAY | END 2024-04-14 16:16 | disposition home or self-care (01) | LOC: HO.CR 08:30 | PROVIDERS: Absent Provider Physician Assistant Surgical; PCP Family Medicine; Visit Provider Thoracic Surgery (Cardiothoracic Vascular Surgery) | DX: I34.0 Nonrheumatic mitral (valve) insufficiency (principal); Z95.2 Presence of prosthetic heart valve | CPT/HCPCS: 93798 ==